=== PATIENT | female | born 1985 | race Caucasian/White ===

== ENCOUNTER → 2016-11-02 | Outpatient (CLI) | payer OTHER ==
[~2016-11-02] MED LIST: FRRS300 PO; NITR-5 PO; ONDA4TAB10 SL; PRENTAB26 PO
[2016-11-02 15:12] LABS: URINE APPEARANCE CLEAR (CLEAR); URINE BILIRUBIN NEG (NEG); URINE COLOR YELLOW; URINE EPITHELIAL CELL AUTO >30 /lpf (0-5); URINE NITRITE NEG (NEG); URINE PH 7.5 (4.5-7.5); URINE SPECIFIC GRAVITY 1.024 (1.000-1.030); UROBILINOGEN NEG (NEG)
[2016-11-02 15:14] LABS: MANUAL MICROSCOPIC REQUIRED? NO; REVIEW REQ? NO
[2016-11-06 23:54] LABS: CHLAMYDIA TRACH RNA*** NOT DETECTED (NOT DETECTED); GC (NEIS GONORRHOEAE)RNA** NOT DETECTED (NOT DETECTED)
== END | disposition home or self-care (01) ==
LOC: C.LABSPEC 13:27
PROVIDERS: ATTEND Physician Assistant
DX: N89.8 Other specified noninflammatory disorders of vagina (principal)

== ENCOUNTER → 2016-11-14 | Outpatient (CLI) | payer OTHER | END | disposition home or self-care (01) | LOC: C.LABSPEC 18:15 | PROVIDERS: ATTEND Physician Assistant | DX: N89.8 Other specified noninflammatory disorders of vagina (principal) ==

== ENCOUNTER 2017-01-03 15:34 | Emergency (ER) | payer OTHER ==
[~2017-01-03] VITALS: Ht 157.5 cm; Wt 66.8 kg
[~2017-01-03 15:34] MED LIST changes: -NITR-5 PO; -ONDA4TAB10 SL
[2017-01-03 15:37] VITALS: TEMP 36.8; Ht 157.5 cm; Wt 66.8 kg
[2017-01-03] MEDS ORDERED: ONDANSETRON INJ 2 MG/ML 2 ML VIAL IV STA (15:50)
[2017-01-03] MEDS ORDERED: SODIUM CHLORIDE 0.9% 1000ML 1,000 ML IV STA (15:50)
[2017-01-03 16:27] LABS: BASO % 0.8 %; BASO ABS # 0.03 K/uL (0-0.2); COMPLETE YES; EOS % 1.8 %; HEMATOCRIT 33.3 % (37-47); IG% 0.3 %; LYMPH % 30.6 %; LYMPH ABS # 1.18 K/uL (1.2-3.4); MEAN CELL VOLUME 90.7 fL (80-100); MEAN PLATELET VOLUME 9.6 fL (7.4-10.4); NEUT % 52.5 %; PLATELET COUNT 193 K/uL (130-400); RED BLOOD COUNT 3.67 M/uL (4.2-5.4); WHITE BLOOD COUNT 3.85 K/uL (4.8-10.8)
[2017-01-03 16:47] LABS: BUN/CREATININE RATIO 14.8 (10-20); CALCIUM 8.5 mg/dl (8.5-10.1); CREATININE 0.68 mg/dl (0.60-1.20); POTASSIUM 3.9 mmol/L (3.5-5.1)
[2017-01-03 16:50] LABS: URINE APPEARANCE CLEAR (CLEAR); URINE BILIRUBIN NEG (NEG); URINE COLOR YELLOW; URINE EPITHELIAL CELL AUTO >30 /lpf (0-5); URINE NITRITE NEG (NEG); URINE SPECIFIC GRAVITY 1.023 (1.000-1.030); UROBILINOGEN NEG (NEG)
[2017-01-03 16:55] LABS: MANUAL MICROSCOPIC REQUIRED? NO; REVIEW REQ? NO
--- NOTE | 2017-01-03 18:14 | DIAGNOSTIC IMAGING REPORT ---
FIRST TRIMESTER ULTRASOUND (transabdominal and endovaginal scanning) CLINICAL HISTORY: . Pain. COMPARISON STUDY: No previous studies for comparison. FINDINGS: The uterus measures 9.2 x 4.8 x 5.7 cm. A 5 mm cystic structure is visualized within the endometrium. This appears to demonstrate a double decidual sign. A small yolk sac is visualized. Embryonic pole was not yet evident. The right ovary measures 36 x 20 x 20 mm. The left ovary measures 29 x 18 x 20 mm. IMPRESSION: Early intrauterine gestation. Gestational sac measures 5 mm. A yolk sac was identified. No embryonic pole was yet visualized. Electronically signed by: Trever Magallanes M.D. 01/03/2017 6:12 PM Dictated Date/Time: 01/03/2017 6:10 PM
--- NOTE | 2017-01-03 18:17 | DIAGNOSTIC IMAGING REPORT ---
RENAL ULTRASONOGRAPHY CLINICAL HISTORY: Flank pain. . COMPARISON STUDY: Biliary ultrasound dated 01/12/2016, MRI dated 02/18/2014 FINDINGS: The right kidney measures 13.1 cm in length. The left kidney measures 12.3 cm in length. No renal masses are visualized. There is no hydronephrosis. The spleen is minimally enlarged measuring 13.9 cm. Multiple large hepatic masses are visualized. A prior MRI revealed large hepatic hemangiomas. No bladder masses were visualized. Neither ureteral jet was identified IMPRESSION: 1. Ultrasonographically normal kidneys. No evidence of hydronephrosis 2. Enlarging hepatic masses, the largest of which measures 9.4 cm. A 2014 MRI study revealed giant hemangiomas 3. Mild splenomegaly Electronically signed by: Trever Magallanes M.D. 01/03/2017 6:16 PM Dictated Date/Time: 01/03/2017 6:12 PM
[2017-01-03] MEDS ORDERED: CEFTRIAXONE SOD INJ 1 GM ADDVIAL IV STA (18:59)
[2017-01-03] MEDS ORDERED: NITROFURANTOIN MONOHYDRATE 100 MG CAP PO STA (19:00)
[2017-01-03] MEDS ORDERED: MACROBID 100MG HOME PACK 1 EA VIAL PO ONE (19:00)
[2017-01-03] MEDS ORDERED: ONDA4TAB10 SL (19:03)
[2017-01-03] MEDS ORDERED: NITR-5 PO (19:03)
--- NOTE | 2017-01-03 19:14 | EMERGENCY ROOM VISIT NOTE ---
History Report prepared by Sarita: Moose Dasilva Under the Supervision of: Dr. Karri Simon D.O. First contact with patient: 15:45 Chief Complaint: ABDOMINAL PAIN Stated Complaint: ABDOMINAL PAIN, BACK PAIN- LT SIDE WORSE History of Present Illness The patient is a 31 year old female who presents to the Emergency Room with complaints of waxing and waning left sided abdominal pain beginning five days ago. She is , but is not sure how far along she is. Her LNMP was about a month ago. This is her fourth , and she had three successful births. The patient describes her pain as "stabbing". She states that her pain radiates into her back. The patient denies any vomiting, urinary symptoms, chest pain, SOB, or diarrhea. She also complains of nausea. She was seen by her PCP yesterday who checked her urine which appeared normal. The patient has a history of abdominal pain from "stomach issues", but states that her current pain feels very different. She denies any recent alcohol use. She does not smoke. Her last normal bowel movement was today. The patient states that she has been experiencing some intermittent reflux-like symptoms recently. Source of History: patient Onset: Five days ago Position: abdomen (left side) Quality: stabbing Timing: waxes/wanes Associated Symptoms: + nausea, + back pain, No chest pain, No SOB, No vomiting, No diarrhea, No urinary symptoms Review of Systems See HPI for pertinent positives & negatives. A total of 10 systems reviewed and were otherwise negative. Past Medical & Surgical Medical Problems: (1) 40 weeks gestation of (2) Normal labor Family History No pertinent family history stated. Social History Smoking Status: Never Smoker Housing Status: lives with family Current/Historical Medications Scheduled Nitrofurantoin Monohyd Macrocr (Macrobid), 100 MG PO BID Ondasetron Odt (Zofran Odt), 4 MG SL Q6H Allergies Coded Allergies: Penicillin G (Verified Allergy, Intermediate, RASH, 01/03/17) Physical Exam Vital Signs Date Time Temp Pulse Resp B/P (MAP) Pulse Ox O2 Delivery O2 Flow Rate FiO2 01/03/17 19:26 70 16 119/76 99 01/03/17 19:08 79 18 119/76 99 Room Air 01/03/17 15:37 36.8 87 16 134/88 100 Room Air Physical Exam GENERAL: Patient is awake, alert, and in no acute distress. Patient is resting comfortably and showing no signs of anxiety EYES: The conjunctivae are clear. The pupils are round and reactive. EARS, NOSE, MOUTH AND THROAT: The nose is without any evidence of any deformity. Mucous membranes are moist tongue is midline NECK: The neck is nontender and supple. RESPIRATORY: Normal respiratory effort is noted there is no evidence of wheezing rhonchi or rales CARDIOVASCULAR: Regular rate and rhythm noted there no murmurs rubs or gallops normal S1 normal S2 GASTROINTESTINAL: The abdomen is soft with LUQ tend to palpation. No guarding or rigidity noted. BACK: Mild left CVA tenderness to percussion. No midline tenderness. ROM intact. MUSCULOSKELETAL/EXTREMITIES: There is no evidence of gross deformity full range of motion is noted in the hips and shoulders SKIN: There is no obvious evidence of any rash. There are no petechiae, pallor or cyanosis noted. NEUROLOGIC: Patient is awake alert and oriented x3 Medical Decision & Procedures ER Provider Diagnostic Interpretation: US results as stated below per my review and radiologist interpretation. RENAL ULTRASONOGRAPHY FINDINGS: The right kidney measures 13.1 cm in length. The left kidney measures 12.3 cm in length. No renal masses are visualized. There is no hydronephrosis. The spleen is minimally enlarged measuring 13.9 cm. Multiple large hepatic masses are visualized. A prior MRI revealed large hepatic hemangiomas. No bladder masses were visualized. Neither ureteral jet was identified IMPRESSION: 1. Ultrasonographically normal kidneys. No evidence of hydronephrosis 2. Enlarging hepatic masses, the largest of which measures 9.4 cm. A 2013 MRI study revealed giant hemangiomas 3. Mild splenomegaly Electronically signed by: Trever Magallanes M.D. FIRST TRIMESTER ULTRASOUND (transabdominal and endovaginal scanning) FINDINGS: The uterus measures 9.2 x 4.8 x 5.7 cm. A 5 mm cystic structure is visualized within the endometrium. This appears to demonstrate a double decidual sign. A small yolk sac is visualized. Embryonic pole was not yet evident. The right ovary measures 36 x 20 x 20 mm. The left ovary measures 29 x 18 x 20 mm. IMPRESSION: Early intrauterine gestation. Gestational sac measures 5 mm. A yolk sac was identified. No embryonic pole was yet visualized. Electronically signed by: Trever Magallanes M.D. Laboratory Results 01/03/17 16:00 Red Blood Count 3.67, Mean Corpuscular Volume 90.7, Mean Corpuscular Hemoglobin 30.0, Mean Corpuscular Hemoglobin Concent 33.0, Mean Platelet Volume 9.6, Neutrophils (%) (Auto) 52.5, Lymphocytes (%) (Auto) 30.6, Monocytes (%) (Auto) 14.0, Eosinophils (%) (Auto) 1.8, Basophils (%) (Auto) 0.8, Neutrophils # (Auto ) 2.02, Lymphocytes # (Auto) 1.18, Monocytes # (Auto) 0.54, Eosinophils # (Auto ) 0.07, Basophils # (Auto) 0.03 01/03/17 16:00 Test 01/03/17 16:00 White Blood Count 3.85 K/uL (4.8-10.8) Red Blood Count 3.67 M/uL (4.2-5.4) Hemoglobin 11.0 g/dL (12.0-16.0) Hematocrit 33.3 % (37-47) Mean Corpuscular Volume 90.7 fL (80-100) Mean Corpuscular Hemoglobin 30.0 pg (25-34) Mean Corpuscular Hemoglobin Concent 33.0 g/dl (32-36) Platelet Count 193 K/uL (130-400) Mean Platelet Volume 9.6 fL (7.4-10.4) Neutrophils (%) (Auto) 52.5 % Lymphocytes (%) (Auto) 30.6 % Monocytes (%) (Auto) 14.0 % Eosinophils (%) (Auto) 1.8 % Basophils (%) (Auto) 0.8 % Neutrophils # (Auto) 2.02 K/uL (1.4-6.5) Lymphocytes # (Auto) 1.18 K/uL (1.2-3.4) Monocytes # (Auto) 0.54 K/uL (0.11-0.59) Eosinophils # (Auto) 0.07 K/uL (0-0.5) Basophils # (Auto) 0.03 K/uL (0-0.2) RDW Standard Deviation 43.0 fL (36.4-46.3) RDW Coefficient of Variation 13.1 % (11.5-14.5) Immature Granulocyte % (Auto) 0.3 % Immature Granulocyte # (Auto) 0.01 K/uL (0.00-0.02) Urine Color YELLOW Urine Appearance CLEAR (CLEAR) Urine pH 6.0 (4.5-7.5) Urine Specific [place] 1.023 (1.000-1.030) Urine Protein NEG (NEG) Urine Glucose (UA) NEG (NEG) Urine Ketones NEG (NEG) Urine Occult Blood NEG (NEG) Urine Nitrite NEG (NEG) Urine Bilirubin NEG (NEG) Urine Urobilinogen NEG (NEG) Urine Leukocyte Esterase SMALL (NEG) Urine WBC (Auto) 10-30 /hpf (0-5) Urine RBC (Auto) 0-4 /hpf (0-4) Urine Hyaline Casts (Auto) 1-5 /lpf (0-5) Urine Epithelial Cells (Auto) >30 /lpf (0-5) Urine Bacteria (Auto) 1+ (NEG) Anion Gap 5.0 mmol/L (3-11) Est Creatinine Clear Calc Drug Dose 109.4 ml/min Estimated GFR () 137.0 Estimated GFR (Non- 118.2 BUN/Creatinine Ratio 14.8 (10-20) Calcium Level 8.5 mg/dl (8.5-10.1) Total Bilirubin 0.5 mg/dl (0.2-1) Direct Bilirubin 0.1 mg/dl (0-0.2) Aspartate Amino Transf (AST/SGOT) 12 U/L (15-37) Alanine Aminotransferase (ALT/SGPT) 21 U/L (12-78) Alkaline Phosphatase 69 U/L (45-117) Total Protein 6.8 gm/dl (6.4-8.2) Albumin 3.5 gm/dl (3.4-5.0) Lipase 147 U/L (73-393) Human Chorionic Gonadotropin, Quant 2859 mIU/mL Laboratory results per my review. Medications Administered Medications (Trade) Dose Ordered Sig/Alejandro Route Start Time Stop Time Status Last Admin Dose Admin Sodium Chloride 1,000 ml @ 999 mls/hr Q1H1M STAT IV 01/03/17 15:50 01/03/17 16:51 DC 01/03/17 15:50 999 MLS/HR Nitrofurantoin Macrocrystals (Macrobid Cap) 100 mg NOW STAT PO 01/03/17 19:00 01/03/17 19:02 DC 01/03/17 19:10 100 MG Nitrofurantoin (Macrobid Homepack 100MG) 1 homepack UD ONCE PO 01/03/17 19:00 01/03/17 19:02 DC 01/03/17 19:16 1 HOMEPACK ED Course 1546: The patient was evaluated in room A2. A complete history and physical examination were performed. 1550: Ordered Zofran Inj 4 mg IV, NSS 1,000 ml @ 999 mls/hr IV. 1859: Ordered Rocephin Inj 1 gm IV. 1900: Ordered Macrobid Homepack 100 mg PO, Macrobid Cap 100 mg PO. Upon reevaluation, the patient is resting comfortably. I discussed the results and treatment plan with Her. She verbalized agreement of the treatment plan. The patient was discharged home. Medical Decision Differential diagnosis: Etiologies such as appendicitis, diverticulitis, PUD, biliary pathology, UTI, pancreatitis, obstruction, mesenteric ischemia, aortic pathology, infections, inflammatory bowel disease, renal colic, as well as others were entertained. Nursing notes reviewed. The patient is a 31-year-old female who presented to the emergency department for an evaluation of left-sided flank pain. The patient is currently in her first trimester . She had no vaginal bleeding or discharge noted. The patient's abdominal pain appeared to be mostly on the left side. She did not have a physical exam consistent with an acute surgical abdomen. The patient's pelvic ultrasound did show signs of intrauterine and her beta hCG quantitative was correlating with this ultrasound. The patient was found have abnormalities in her liver which are consistent with her previous radiographic studies. I discussed the patient's laboratory and radiographic studies with her. She was found to have signs of urinary tract infection on urinalysis. She was treated with antibiotics in emergency department. She was encouraged to rest and avoid any strenuous activity. She was also encouraged to follow-up with her primary care physician as soon as possible for further evaluation and also follow-up with her primary [facility] physician. Otherwise she was encouraged to return to the emergency apartment immediately if symptoms change worsen or the need arises. Impression Primary Impression: LUQ abdominal pain Additional Impression: First trimester Scribe Attestation The scribe's documentation has been prepared under my direction and personally reviewed by me in its entirety. I confirm that the note above accurately reflects all work, treatment, procedures, and medical decision making performed by me. Departure Information Dispostion Home / Self-Care Prescriptions Nitrofurantoin Monohyd Macrocr (Macrobid) 100 Mg Cap 100 MG PO BID, #14 CAP Prov: Karri Simon, DO 01/03/17 Ondasetron Odt (ZOFRAN ODT) 4 Mg Tab 4 MG SL Q6H for Nausea, #15 TAB Prov: Karri Simon, DO 01/03/17 Referrals Akira Burgos MD (PCP) Forms HOME CARE DOCUMENTATION FORM, IMPORTANT VISIT INFORMATION Patient Instructions ED Abdominal Pain Unkn Cause, My [facility], Urinary Tract Infecs Women Additional Instructions Call your family as well as her [facility] physician to schedule follow-up appointment. Drink plenty clear liquids. Continue all medications as prescribed. Return to the emergency Department immediately if symptoms change worsen or the need arises. Problem Qualifiers
[2017-01-03 19:26] VITALS: BP 119/76; PULSE 70; O2SAT 99
== END 2017-01-03 19:27 | disposition home or self-care (01) ==
LOC: C.EDB 15:35 → C.EDA 19:27
DX: O99.89 Other specified diseases and conditions complicating pregnancy, childbirth and the puerperium (principal); Z3A.00 Weeks of gestation of pregnancy not specified; R10.12 Left upper quadrant pain

== ENCOUNTER → 2017-01-19 | Outpatient (CLI) | payer OTHER ==
[~2017-01-19] MED LIST changes: -FRRS300 PO; +NITR-5 PO; +ONDA4TAB10 SL; -PRENTAB26 PO
[2017-01-19 14:37] LABS: URINE APPEARANCE CLEAR (CLEAR); URINE BILIRUBIN NEG (NEG); URINE COLOR YELLOW; URINE NITRITE NEG (NEG); URINE PH >= 9.0 (4.5-7.5); URINE SPECIFIC GRAVITY 1.024 (1.000-1.030); UROBILINOGEN NEG (NEG)
[2017-01-19 14:48] LABS: MANUAL MICROSCOPIC REQUIRED? NO; REVIEW REQ? NO
== END | disposition home or self-care (01) ==
LOC: C.LABSPEC 13:47
PROVIDERS: ATTEND Obstetrics & Gynecology
DX: Z34.90 Encounter for supervision of normal pregnancy, unspecified, unspecified trimester (principal)

== ENCOUNTER → 2017-01-23 | Outpatient (CLI) | payer OTHER ==
[2017-01-23 12:20] LABS: BASO % 0.4 %; BASO ABS # 0.02 K/uL (0-0.2); COMPLETE YES; HEMATOCRIT 36.2 % (37-47); IG% 0.4 %; LYMPH % 24.9 %; LYMPH ABS # 1.23 K/uL (1.2-3.4); MEAN CELL VOLUME 88.7 fL (80-100); MEAN CORPUSCULAR HEMOGLOBIN 28.4 pg (25-34); MEAN PLATELET VOLUME 9.5 fL (7.4-10.4); MONO % 9.5 %; NEUT % 63.8 %; PLATELET COUNT 236 K/uL (130-400); RED BLOOD COUNT 4.08 M/uL (4.2-5.4); WHITE BLOOD COUNT 4.93 K/uL (4.8-10.8)
[2017-01-25 08:35] LABS: CHLAMYDIA TRACH RNA*** NOT DETECTED (NOT DETECTED); GC (NEIS GONORRHOEAE)RNA** NOT DETECTED (NOT DETECTED)
== END | disposition home or self-care (01) ==
LOC: C.LAB1850 10:27
PROVIDERS: ATTEND Obstetrics & Gynecology
DX: Z34.90 Encounter for supervision of normal pregnancy, unspecified, unspecified trimester (principal)

== ENCOUNTER → 2017-01-23 | Outpatient (CLI) | payer OTHER | END | disposition home or self-care (01) | LOC: C.PAPS 13:40 | PROVIDERS: ATTEND Obstetrics & Gynecology | DX: Z34.90 Encounter for supervision of normal pregnancy, unspecified, unspecified trimester (principal) ==

== ENCOUNTER → 2017-03-21 | Outpatient (CLI) | payer OTHER ==
[2017-03-21 12:31] LABS: GTGD 50 Grams
[2017-03-22 15:21] LABS: AFP CONCENTRATION 35.8 NG/ML; AFP MULTIPLE OF MEDIAN 1.17; AFPTS GESTATIONAL AGE 15.6 WEEKS; AFPTS INSULIN DEP DIABETIC? NO; AFPTS MATERNAL WT 151 LBS; ALPHA-FETOPROTEIN RACE CAUCASIAN=W; ESTRIOL MULTIPLE OF MEDIAN 0.83; HISTORY OF NTD NO; INHIBIN A 167 PG/ML; INHIBIN A MOM 0.95; REPEAT SAMPLE? NO; hCG MULTIPLE OF MEDIAN 1.97
== END | disposition home or self-care (01) ==
LOC: C.LAB1850 11:33
PROVIDERS: ATTEND Obstetrics & Gynecology
DX: Z34.82 Encounter for supervision of other normal pregnancy, second trimester (principal)

== ENCOUNTER → 2017-05-03 | Outpatient (CLI) | payer OTHER ==
--- NOTE | 2017-05-03 14:35 | MAMMOGRAPHY REPORT ---
ULTRASOUND OF LEFT BREAST: 05/03/2017 CLINICAL HISTORY: The patient reports intermittent pain in her left breast for approximately 2 months . She is currently 21 weeks . She has a history of a fine-needle aspiration of a palpable l eft 1:00 breast lump which yielded benign lactational changes. COMPARISON: Comparison is made to exams dated: 07/06/2015 ultrasound and 01/12/2016 ultrasound - [facility]. TECHNIQUE: Real-time targeted ultrasound of the left breast was performed. FINDINGS: Real-time, high-resolution targeted ultrasound was performed of the area of intermittent p ain pointed out by the patient in the left upper outer quadrant. She also reports intermittent pain in the left upper inner quadrant along the edge of the breast. Heterogeneous breast parenchyma is not ed in these regions, consistent with lactational changes. No suspicious mass or other suspicious son ographic abnormality is evident. IMPRESSION: ACR BI-RADS CATEGORY 2: BENIGN No suspicious sonographic abnormalities at the site of left breast pain pointed out by the patient. There is no sonographic evidence of malignancy. Recommend clinical follow-up. The patient was verbally notified of the results. Fiona Dugan M.D. /:05/03/2017 09:29:17 Lbd Teacher: Rhoda DEXTER([place])([place]), [facility] letter sent: Normal 1/2 BI-RADS Code: ACR BI-RADS Category 2: Benign
== END | disposition home or self-care (01) ==
LOC: C.MAMM 09:06
PROVIDERS: ATTEND Nurse Practitioner Family
DX: O92.29 Other disorders of breast associated with pregnancy and the puerperium (principal); Z3A.21 21 weeks gestation of pregnancy

== ENCOUNTER → 2017-06-11 | Outpatient (CLI) | payer OTHER ==
[2017-06-11 13:38] LABS: HEMATOCRIT 27.9 % (37-47)
[2017-06-11 14:08] LABS: GTGD 50 Grams
[2017-06-11 14:36] LABS: URINE APPEARANCE CLEAR (CLEAR); URINE BILIRUBIN NEG (NEG); URINE COLOR YELLOW; URINE EPITHELIAL CELL AUTO >30 /lpf (0-5); URINE NITRITE NEG (NEG); URINE PH 6.5 (4.5-7.5); URINE SPECIFIC GRAVITY 1.024 (1.000-1.030); UROBILINOGEN NEG (NEG)
[2017-06-11 14:37] LABS: MANUAL MICROSCOPIC REQUIRED? NO; REVIEW REQ? NO
== END | disposition home or self-care (01) ==
LOC: C.LAB1850 12:26
PROVIDERS: ATTEND Obstetrics & Gynecology
DX: Z34.83 Encounter for supervision of other normal pregnancy, third trimester (principal)

== ENCOUNTER 2017-07-04 18:52 | Emergency (ER) | payer OTHER ==
[~2017-07-04] VITALS: Ht 157.5 cm; Wt 79.8 kg
[2017-07-04 19:02] VITALS: TEMP 36.7; Ht 157.5 cm; Wt 79.8 kg
--- NOTE | 2017-07-04 20:08 | DIAGNOSTIC IMAGING REPORT ---
R FOOT MIN 3 VIEWS ROUTINE CLINICAL HISTORY: 32 years-old Female presenting with right foot pain, pt . TECHNIQUE: Frontal, oblique, and lateral views of the right foot were obtained. COMPARISON: None. FINDINGS: No acute fracture or malalignment. No significant degenerative change. No radiographic soft tissue abnormality. IMPRESSION: No acute osseous injury of the right foot. Electronically signed by: Robert Vu M.D. 07/04/2017 8:06 PM Dictated Date/Time: 07/04/2017 8:04 PM
--- NOTE | 2017-07-04 20:17 | EMERGENCY ROOM VISIT NOTE ---
History First contact with patient: 19:08 Chief Complaint: FALL Stated Complaint: FELL-30 WKS W/CONTRACTIONS, RT LEG/ANKLE PAIN-WC History of Present Illness The patient is a 32 year old female who presents to the Emergency Room with complaints of an injury to her right foot. The patient states she is currently 30 weeks and 4 days . The patient states that she tripped and fell earlier in the day, injuring her right foot. She denies head injury or any other injury. She rates her discomfort a 4/10. She does state that during her drive here, she began to feel what she believes are contractions. She states these happen about 2 minutes apart. She has had previous deliveries but states she is unsure if this felt like those or if these are [facility] contractions. She denies any numbness or weakness. She denies any pain in the ankle or the rest of the leg. Review of Systems A complete 10 point review of systems was reviewed with the patient with pertinent positives and negatives as per history of present illness. All else were negative. Past Medical/Surgical History Medical Problems: (1) 40 weeks gestation of (2) Normal labor Social History Smoking Status: Never Smoker Housing Status: lives with family Current/Historical Medications Scheduled Multivitamins/Minerals (Mvi With Minerals), 1 TAB PO DAILY Physical Exam Vital Signs Date Time Temp Pulse Resp B/P (MAP) Pulse Ox O2 Delivery O2 Flow Rate FiO2 07/04/17 20:38 93 16 115/70 100 07/04/17 19:02 36.7 104 18 127/72 100 Room Air Physical Exam VITALS: Vitals are noted on the nurse's note and reviewed by myself. Vital signs stable. GENERAL: This is a 32-year-old female, in no acute distress, nondiaphoretic, well-developed well-nourished. HEART: Regular rate and rhythm without murmurs gallops or rubs. LUNGS: Clear to auscultation bilaterally without wheezes, rales or rhonchi. ABDOMEN: Gravid appearance. No abdominal tenderness to palpation. MUSCULOSKELETAL: There is mild tenderness to palpation the medial aspect of the right foot. No tenderness of the ankle or tibia/fibula. Dorsalis pedis pulse 2 +. NEURO: Patient was alert and oriented to person place and time. Medical Decision & Procedures ER Provider Diagnostic Interpretation: R FOOT MIN 3 VIEWS ROUTINE FINDINGS: No acute fracture or malalignment. No significant degenerative change. No radiographic soft tissue abnormality. IMPRESSION: No acute osseous injury of the right foot. Medical Decision The patient was evaluated as above. X-ray of the right foot was obtained and read by radiology with no acute fractures. Patient was offered a postoperative shoe but declined. Conservative measures were discussed with the patient. She will follow-up with her primary care provider or orthopedics as needed. RESEARCH TECHNOLOGIST was consulted and the patient was sent to labor and delivery for monitoring due to complaint of possible contractions. Medication Reconcilliation Current Medication List: was personally reviewed by co Blood Pressure Screening Patient's blood pressure: Normal blood pressure Impression Primary Impression: Right foot pain Departure Information Dispostion Home / Self-Care Condition GOOD Referrals Akira Burgos MD (PCP) Patient Instructions [facility] Additional Instructions Tylenol as needed for pain. Ice the foot and elevate it for pain. Follow-up with your primary care provider/orthopedics for persistent or worsening foot pain.
[2017-07-04] MEDS ORDERED: ZFRODT4HP PO (20:29)
[2017-07-04] MEDS ORDERED: ACET-1256 PO (20:29)
[2017-07-04] MEDS ORDERED: MULT-513 PO (20:29)
[2017-07-04 20:38] VITALS: BP 115/70; PULSE 93; O2SAT 100
== END 2017-07-04 20:40 | disposition home or self-care (01) ==
LOC: C.EDB 18:54 → C.EDA 20:40
DX: M79.671 Pain in right foot (principal); Z33.1 Pregnant state, incidental

== ENCOUNTER 2017-07-04 20:46 | Outpatient (CLI) | payer OTHER ==
[~2017-07-04] VITALS: Ht 157.5 cm; Wt 79.8 kg
[~2017-07-04 20:46] MED LIST changes: +ACET-1256 PO; +MULT-513 PO; +ZFRODT4HP PO
[2017-07-04 21:17] VITALS: Ht 157.5 cm; Wt 79.8 kg
== END 2017-07-04 21:40 | disposition home or self-care (01) ==
LOC: C.OPB 20:46 → C.LD 20:46 → C.OPB 21:40
PROVIDERS: ATTEND Obstetrics & Gynecology
DX: O99.89 Other specified diseases and conditions complicating pregnancy, childbirth and the puerperium (principal); S99.929A Unspecified injury of unspecified foot, initial encounter; O62.9 Abnormality of forces of labor, unspecified; W19.XXXA Unspecified fall, initial encounter; Z3A.00 Weeks of gestation of pregnancy not specified

== ENCOUNTER → 2017-08-16 | Outpatient (CLI) | payer OTHER ==
[~2017-08-16] MED LIST changes: -ACET-1256 PO; -NITR-5 PO; -ONDA4TAB10 SL; -ZFRODT4HP PO
== END | disposition home or self-care (01) ==
LOC: C.LABSPEC 17:56
PROVIDERS: ATTEND Obstetrics & Gynecology
DX: Z34.83 Encounter for supervision of other normal pregnancy, third trimester (principal); Z3A.00 Weeks of gestation of pregnancy not specified

== ENCOUNTER 2017-09-03 02:49 | Inpatient (IN) | payer OTHER ==
[~2017-09-03] VITALS: Ht 160 cm; Wt 66.7 kg
[2017-09-03] MEDS ORDERED: LACTATED RINGER'S 1000ML 1,000 ML IV PRN (04:49)
[2017-09-03 04:51] VITALS: Ht 160 cm; Wt 66.7 kg
[2017-09-03] MEDS ORDERED: LACTATED RINGER'S 1000ML 1,000 ML IV SCH (05:00)
[2017-09-03 05:31] LABS: HEMOGLOBIN 8.2 g/dL (12.0-16.0); MEAN CORPUSCULAR HEMOGLOBIN 25.9 pg (25-34); MEAN CORPUSCULAR HGB CONC 31.5 g/dl (32-36); MEAN PLATELET VOLUME 8.8 fL (7.4-10.4); NUCLEATED RED BLOOD CELL ABS 0.06 K/uL (0-0); PLATELET COUNT 159 K/uL (130-400); RED CELL DISTRIBUTION WIDTH CV 16.2 % (11.5-14.5); RED CELL DISTRIBUTION WIDTH SD 47.5 fL (36.4-46.3); WHITE BLOOD COUNT 16.39 K/uL (4.8-10.8)
[2017-09-03] MEDS ORDERED: BUPIVACAINE 0.25% 30 ML VIAL ONE (06:31)
[2017-09-03] MEDS ORDERED: FENTANYL 2MCG/ML ROPIV 1.25MG/ML 100ML BAG EPI ONE (06:31)
[2017-09-03] MEDS ORDERED: EpHEDrine SULFATE INJ 50 MG/ML AMP ONE (06:31)
[2017-09-03] MEDS ORDERED: FENTANYL CITRATE INJ 50 MCG/1 ML 2 ML VIAL ONE (06:31)
[2017-09-03] MEDS ORDERED: LACTATED RINGER'S 1000ML 500 ML IV PRN (07:05)
[2017-09-03] MEDS ORDERED: NALOXONE HCL INJ 1 MG in SODIUM CHLORIDE 0.9% 1000ML 1,000 ML IV PRN (07:05)
[2017-09-03] MEDS ORDERED: EpHEDrine SULFATE INJ 50 MG/ML AMP IV PRN (07:15)
[2017-09-03] MEDS ORDERED: DiphenhydrAMINE HCL 50 MG/ML VIAL IV PRN (07:15)
[2017-09-03] MEDS ORDERED: NALOXONE HCL INJ 0.4 MG/1 ML VIAL/CARP IV PRN (07:15)
[2017-09-03] MEDS ORDERED: FENTANYL 2MCG/ML ROPIV 1.25MG/ML 100ML BAG EPI PRN (07:15)
[2017-09-03] MEDS ORDERED: NALBUPHINE HCL INJ 10 MG/ML AMP IV PRN (07:15)
[2017-09-03] MEDS ORDERED: ONDANSETRON INJ 2 MG/ML 2 ML VIAL IV PRN (07:15)
[2017-09-03] MEDS ORDERED: OXYTOCIN 30 UNITS/500ML NSS IV ONE (08:38)
[2017-09-03] MEDS ORDERED: METHYLERGONOVINE MALEATE 0.2 MG/ML AMP ONE (08:41)
--- NOTE | 2017-09-03 09:09 | Anesthesia Procedure Note ---
Anesthesia Epidural Removal Nt Date & Time Sep 03, 2017 at 09:08 Vital Signs Pain Intensity: 0.0 Notes Mental Status: alert / awake / arousable, participated in evaluation Nausea / Vomiting: adequately controlled Pain: adequately controlled Airway Patency, RR, SpO2: stable & adequate BP & HR: stable & adequate Hydration State: stable & adequate Neuraxial Anesthesia: was administered Anesthetic Complications: no major complications apparent, pt satisfied with anesthetic care Epidural: removed without complications, with tip intact
[2017-09-03] MEDS ORDERED: LANOLIN OINT EXT PRN (09:15)
[2017-09-03] MEDS ORDERED: DIPHTHERIA/TETANUS/PERTUSSIS 0.5 ML SYR/VIAL IM. ONE (09:15)
[2017-09-03] MEDS ORDERED: OXYCODONE/ACETAMINOPHEN 5-325 TAB PO PRN (09:15)
[2017-09-03] MEDS ORDERED: OXYTOCIN 30 UNITS/500ML NSS IV PRN (09:15)
[2017-09-03] MEDS ORDERED: SUPERCREAM 0.870 % 15GM JAR EXT PRN (09:15)
[2017-09-03] MEDS ORDERED: BENZOCAINE 20% AER SPR 82.5 GM CAN EXT PRN (09:15)
[2017-09-03] MEDS ORDERED: HYDROCORTISONE ACETATE 25 MG SUPP PR PRN (09:15)
[2017-09-03] MEDS: IBUPROFEN 600 MG TAB PO PRN ×3 (10:26→20:18)
[2017-09-03] MEDS: ACETAMINOPHEN 325 MG TAB PO PRN ×3 (11:06→23:49)
[2017-09-03 12:45] VITALS: BP 126/85; PULSE 93; TEMP 36.9; O2SAT 98
--- NOTE | 2017-09-03 13:35 | Discharge Instructions ---
Discharge Instructions Date of Service Sep 03, 2017. Admission Reason for Admission: LABOR Discharge Discharge Diagnosis / Problem: Vaginal Delivery Discharge Goals Goal(s): Routine recovery after delivery Medications Continue Dispensed Medications: supercream, dermaplast, tucks, lansinoh Activity Recommendations Activity Limitations: per Instructions/Follow-up section . Instructions / Follow-Up Instructions / Follow-Up ACTIVITY RECOMMENDATIONS: * Gradual return to full activity over the next 2-3 weeks. * No lifting - nothing heavier than baby over the next 2-3 weeks. * Do not engage in vigorous exercise, sexual activity or sports until cleared by your physician. * Do not drive or operate any motorized equipment until cleared by your physician. * You may shower/bathe daily. MEDICATIONS: For discomfort or pain, you may use Acetaminophen (Tylenol), Ibuprofen (Advil), or Naproxen (Aleve) following the package directions. For constipation you may use Colace following the package directions. BREAST CARE: If you are not breast feeding: * Wear a supportive bra 24 hours a day for one to two weeks. * Avoid stimulating your breasts and nipples as much as possible during the first few weeks after delivery. * When taking a shower, have the warm water hit your back, not breasts. * When your breasts feel full, apply ice packs. Usually three to four times a day helps ease the discomfort. * Take a mild pain medication (Tylenol / Motrin) when you are uncomfortable. If breast feeding: * Use breast milk to lubricate nipples. Lansinoh cream may be used for sore nipples. You do not need to remove cream prior to breast feeding. If using a different brand of cream, check the label for directions regarding removal of cream prior to nursing. * Wear a supportive bra. * If having problems with breasts or breast feeding, call a personal consultant or your health care provider. EPISIOTOMY CARE: After delivery, if you have an episiotomy (stitches), the following steps will ease discomfort and aid healing. * For the first 24 hours after delivery, place ice packs next to your episiotomy to help reduce swelling. * After the first 24 hour-period, sitz baths, either portable or in the tub, are suggested. A shower with a shower arm sprayed over the episiotomy may be comforting. * Celestina care should be done after each voiding and bowel movement. Squirt warm water from a plastic bottle over the perineum (region of the body between the anus and urinary opening) and pat dry. * Use Dermoplast to ease discomfort. Shake container. [place] directly over the episiotomy. Place a Tucks on a clean sanitary pad next to your episiotomy. SPECIAL CARE INSTRUCTIONS: When you are discharged from the hospital, it is important for you to follow the instructions listed below: * During the first week at home, you should be able to care for yourself and your baby. In addition, the usual light household activities are encouraged. * Limit your activities to the way you feel. Do not try to clean the house or move furniture. Be sensible. * If you actively engage in sports and have done so up until the time of your delivery, you may resume these activities as soon as you feel able. This may take up to one month or even longer. Use good judgment. * Continue to take your vitamins for at least six weeks after the of your baby. * Your diet need not be limited unless you were on a special diet before your delivery. Breast-feeding mothers need around 2500 calories per day and at least 64-80 ounces of fluid per day (8 to 10 glasses). * You should eat foods from the four major food groups. Crash diets or fad diets are to be avoided. Eating lean meats, fresh fruits and vegetables, low-fat dairy products, high fiber foods and a regular exercise program, will help you get back to your pre- weight without putting your health at risk. * Constipation is sometimes a problem after delivery. Take a mild laxative as needed. If breast feeding, Milk of Magnesia is acceptable to use. You may use a suppository or Fleets enema if no episiotomy. * A daily shower or tub bath is suggested. Be sure to thoroughly and gently dry the perineum. * A bloody vaginal discharge will usually continue until around four weeks post . A small amount of bleeding may continue for as long as six weeks. Vaginal discharge changes from the bright red bleeding after delivery to pink then brownish and finally yellowish-pink before becoming white and disappearing. * Bleeding may increase with activity. Your first period may come in 4-8 weeks. If you are breast feeding, your period may be delayed even longer. * [place] (sex) can begin whenever both you and your partner feel comfortable and do not have any form of genital infection. It is recommended that you wait at least six weeks for internal and external healing to occur. If you have questions, please talk to your health care practitioner. A condom should be used to prevent infection and . * Foreplay, gentle intercourse and lubrication is very important the first several times to prevent pain. A water-based lubricant such as K-Y jelly or Astroglide may be used. * If you have RH negative blood and your baby is RH positive, you will receive RHOGAM by injection prior to discharge. The nurse will give you a card to keep with you that has the date and place that you received RHOGAM after delivery. * During your care, you had a Rubella screen done to check for the presence of rubella antibodies in your blood. If your test was negative, you will receive a Rubella vaccine prior to discharge. This vaccine may cause a fever, soreness at the injection site and flu-like symptoms. If these symptoms persist, notify your health care practitioner. is not advised for one month after a Rubella vaccine. * Verbalizes understanding of car seat law as reviewed with patient nursing. * Car Seat hand-out given and reviewed with patient by nursing. * Shaken baby information reviewed with patient by nursing. Call you doctor if: * Heavy bleeding (saturating several pads an hour) or passing clots the size of your fist. * A fever >101 degrees F (38.3 degrees C) on two occasions four hours apart and /or chills. * Unusual pain in the pelvic or vaginal areas. * "Baby Blues" lasting longer than two weeks. If you have any questions or concerns, call your health care practitioner at . FOLLOW UP VISIT: * Please call the office at to schedule a 6 week examination. It is important you keep this appointment. It is important for you to make arrangements for either yearly or twice yearly check-ups thereafter. Current Hospital Diet Patient's current hospital diet: Regular OB Diet Discharge Diet Recommended Diet: Regular Diet Pending Studies Studies pending at discharge: no Medical Emergencies . Who to Call and When: Medical Emergencies: If at any time you feel your situation is an emergency, please call 911 immediately. . Non-Emergent Contact Non-Emergency issues call your: Primary Care Provider . . "Provider Documentation" section prepared by Shirin Brandon. . VTE Core Measure Inpt VTE Proph given/why not?: Treatment not indicated
[2017-09-03 15:00] VITALS: BP 114/70; PULSE 89; TEMP 36.6; O2SAT 98
[2017-09-03] MEDS: DOCUSATE SODIUM 100 MG CAP PO SCH (20:11)
[2017-09-03 20:20] VITALS: BP 116/76; PULSE 96; TEMP 36.6
[2017-09-03 23:50] VITALS: BP 123/75; PULSE 96; TEMP 36.5
[2017-09-04 03:50] VITALS: BP 114/75; PULSE 77; TEMP 36.4
[2017-09-04] MEDS: IBUPROFEN 600 MG TAB PO PRN ×3 (04:02→12:18)
[2017-09-04 06:15] LABS: HEMATOCRIT 24.2 % (37-47); HEMOGLOBIN 7.4 g/dL (12.0-16.0)
--- NOTE | 2017-09-04 06:25 | Progress Note ---
Subjective Sep 04, 2017. Subjective conversation w/ patient (Patient seen and examined at bedside) Ambulation: ambulating normally Voiding: no voiding problems Diet Tolerance: Regular Diet Lochia: Moderate Feeding Type: Breast Feeding Pain: 7/10, improved with analgesia Review of Systems Constitutional: No fever, No chills Respiratory: No shortness of breath Cardiac: No chest pain Breast: No breast pain Abdomen: No nausea, No vomiting Female : No dysuria Objective Vital Signs Date Time Temp Pulse Resp B/P (MAP) Pulse Ox O2 Delivery O2 Flow Rate FiO2 09/04/17 03:50 36.4 77 18 114/75 (88) Room Air 09/03/17 23:50 Room Air 09/03/17 23:50 36.5 96 18 123/75 (91) Room Air 09/03/17 20:20 36.6 96 18 116/76 (89) Room Air 09/03/17 15:00 36.6 89 20 114/70 (85) 98 Room Air 09/03/17 15:00 98 Room Air 09/03/17 12:45 98 Room Air 09/03/17 12:45 36.9 93 20 126/85 (99) 98 Room Air Physical Exam General Appearance: WELL-APPEARING, WD/WN, NO APPARENT DISTRESS Respiratory/Chest: lungs clear, normal breath sounds Cardiovascular: regular rate, rhythm Abdomen: soft Fundus: Firm, Non-Tender, Relation to Umbilicus (at u) Extremities: no calf tenderness Laboratory Results Last 24 Hours Test 09/04/17 06:04 Hemoglobin 7.4 g/dL Hematocrit 24.2 % Medications Current Inpatient Medications Medications (Trade) Dose Ordered Sig/Alejandro Route Start Time Stop Time Status Last Admin Dose Admin Oxytocin (Pitocin IV) 30 units UD PRN IV 09/03/17 09:15 10/03/17 09:14 Benzocaine (Dermoplast Aero Spr) 1 appln PRN PRN EXT 09/03/17 09:15 10/03/17 09:14 09/03/17 23:49 82.5 APPLN Cocaine HCl (Supercream 0.870% Cr) BID PRN EXT 09/03/17 09:15 09/17/17 09:14 Hydrocortisone Acetate (Anusol Hc Supp) 25 mg BID PRN MO 09/03/17 09:15 10/03/17 09:14 Lanolin (Lanolin Oint) PRN PRN EXT 09/03/17 09:15 10/03/17 09:14 Prenat Multivit/ [place]/Iron/Folic Ac ( Vitamin Tab) 1 tab DAILY PO 09/04/17 08:00 10/04/17 07:59 Ibuprofen (Motrin Tab) 600 mg Q4H PRN PO 09/03/17 09:15 10/03/17 09:14 09/04/17 04:02 600 MG Acetaminophen (Tylenol Tab) 650 mg Q6H PRN PO 09/03/17 09:15 10/03/17 09:14 09/03/17 23:49 650 MG Oxycodone/ Acetaminophen (Percocet 5-325mg Tab) 1 tab Q4H PRN PO 09/03/17 09:15 09/17/17 09:14 Docusate Sodium (coLACE CAP) 100 mg BID PO 09/03/17 20:00 10/03/17 19:59 09/03/17 20:11 100 MG Ferrous Sulfate (Feosol Tab) 325 mg DAILY PO 09/04/17 08:00 10/04/17 07:59 Assessment and Plan Problem List Medical Problems: (1) First trimester Status: Acute (2) LUQ abdominal pain Status: Acute Post- Day#: 1 Continue Routine Care: 32F s/p NVD day 1 - A+, Rubella Immune, GBS -ve - pt doing well clinically - Vital Signs reviewed and WNL - Hemoglobin Reviewed. 8.2 -> 7.4 - Encourage ambulation, monitor and control pain with Motrin PRN - Encourage Breast Feeding - Pt ready for d/c today and counselled on discharge instructions Resident Physician Supervision Note: I interviewed and examined the patient. Discussed with Dr. Brandon and agree with findings and plan as documented in the note. Any exceptions or clarifications are listed here: Doing well. Patient lives with low hgb and is asymptomtaic from her hgb. She would like to go home today. Instructions given. Documented By: Allison Dixon Resident Tracking Resident Involvement: Resident Care Provided Care Provided: OB Delivery
[2017-09-04 07:30] VITALS: BP 127/91; PULSE 84; TEMP 36.8; O2SAT 100
[2017-09-04 07:56] VITALS: BP 127/91; PULSE 84; TEMP 36.8; O2SAT 100
[2017-09-04] MEDS ORDERED: PRENATAL VITAMIN TAB PO SCH (08:00)
[2017-09-04] MEDS ORDERED: FERROUS SULFATE 325 MG TAB PO SCH (08:00)
[2017-09-04] MEDS: DOCUSATE SODIUM 100 MG CAP PO SCH (08:43)
[2017-09-04 09:59] VITALS: O2SAT 100
[2017-09-04 10:05] VITALS: O2SAT 100
== END 2017-09-04 16:45 | disposition home or self-care (01) | DRG 775 ==
LOC: C.LD 02:49 → C.OPB 02:49 → C.LD 04:50 → C.OBG 12:32
PROVIDERS: ADMIT Obstetrics & Gynecology; ATTEND Obstetrics & Gynecology
PROC: 0KQM0ZZ Repair Perineum Muscle, Open Approach (ICD-10-PCS; principal; 2017-09-03)
PROC: 10E0XZZ Delivery of Products of Conception, External Approach (ICD-10-PCS; principal; 2017-09-03)
DX: O70.1 Second degree perineal laceration during delivery (principal); Z37.0 Single live birth; Z3A.39 39 weeks gestation of pregnancy; Z88.0 Allergy status to penicillin

== ENCOUNTER → 2017-09-12 | Outpatient (CLI) | payer OTHER ==
[2017-09-12 17:23] LABS: BASO % 0.1 %; BASO ABS # 0.01 K/uL (0-0.2); EOS % 1.9 %; EOS ABS # 0.17 K/uL (0-0.5); HEMOGLOBIN 9.5 g/dL (12.0-16.0); IG# 0.12 K/uL (0.00-0.02); LYMPH % 24.6 %; LYMPH ABS # 2.15 K/uL (1.2-3.4); MEAN CELL VOLUME 83.8 fL (80-100); MEAN CORPUSCULAR HEMOGLOBIN 25.7 pg (25-34); MEAN CORPUSCULAR HGB CONC 30.6 g/dl (32-36); MONO ABS # 0.61 K/uL (0.11-0.59); NEUT ABS # 5.69 K/uL (1.4-6.5); PLATELET COUNT 344 K/uL (130-400); RED CELL DISTRIBUTION WIDTH CV 16.5 % (11.5-14.5); RED CELL DISTRIBUTION WIDTH SD 49.8 fL (36.4-46.3); WHITE BLOOD COUNT 8.75 K/uL (4.8-10.8)
[2017-09-12 17:46] LABS: ALT/SGPT 18 U/L (12-78); AST/SGOT 14 U/L (15-37)
== END | disposition home or self-care (01) ==
LOC: C.LAB1850 16:50
PROVIDERS: ATTEND Obstetrics & Gynecology
DX: O90.89 Other complications of the puerperium, not elsewhere classified (principal); G44.209 Tension-type headache, unspecified, not intractable

== ENCOUNTER → 2017-10-25 | Outpatient (CLI) | payer OTHER ==
--- NOTE | 2017-10-26 07:46 | MAMMOGRAPHY REPORT ---
ULTRASOUND OF LEFT BREAST: 10/25/2017 CLINICAL HISTORY: The patient has been breast-feeding since August. She has a history of a palpabl e left 1:00 breast mass when she was breast-feeding in 2014, for which she underwent fine-needle aspi ration which yielded benign cytology including abundant breast tissue with lactational change. She r eports that the lump went away when she stopped breast-feeding, however, it has now returned since sh e has been breast-feeding again. She also reports intermittent left lateral breast pain. COMPARISON: Comparison is made to exams dated: 05/03/2017 ultrasound, 01/12/2016 ultrasound, and 06/16 ultrasound - [facility]. TECHNIQUE: Real-time targeted ultrasound of the left breast was performed. FINDINGS: Real-time, high-resolution targeted ultrasound was performed of the area of the palpable kena mp pointed out by the patient, in the left breast at 1:00 approximately 9-10 cm from the nipple. At the site of the palpable lump there is an isoechoic ill-defined mass which measures 2.7 x 1.1 x 3.3 c m. The mass is isoechoic to the surrounding fat lobules and does not appear significantly changed co mpared to the June 2015 exam when accounting for differences in measurement technique. The patie nt underwent a fine-needle aspiration of this area in 2014 which yielded benign pathology including l actational changes. Given the isoechoic appearance on ultrasound and given the prior benign cytology , the mass is benign and felt to represent prominent lactational changes. Targeted ultrasound was al so performed of the left far lateral breast in the region of intermittent pain pointed out by the pat ient, which shows expected lactational changes without evidence of a suspicious mass or other suspici ous sonographic abnormality. IMPRESSION: ACR BI-RADS CATEGORY 2: BENIGN Isoechoic 3.3 x 2.7 cm mass at the site of the palpable left 1:00 breast lump pointed out by the tatyana ent. The mass was previously biopsied in 2014 and yielded benign cytology including lactational guzman ges. Additionally, the mass has the appearance of lactational changes on ultrasound. Given the teresita gn pathology and given the benign appearance on ultrasound, the mass is considered benign and felt to represent lactational changes. There is no sonographic evidence of malignancy. Recommend clinical f ollow-up to resolution; any decision to repeat the biopsy should be based on clinical assessment. The patient was verbally notified of the results. Fiona Dugan M.D. ah/:10/25/2017 12:01:04 Glassware Maker Demonstrator: Fiona Dugan MD, [facility] letter sent: Normal 1/2 BI-RADS Code: ACR BI-RADS Category 2: Benign
== END | disposition home or self-care (01) ==
LOC: C.MAMM 11:28
PROVIDERS: ATTEND Obstetrics & Gynecology
DX: N64.4 Mastodynia (principal)

== ENCOUNTER 2023-08-22 14:43 | Observation (INO) ==
--- NOTE | 2023-08-22 14:48 | ED Triage Note ---
Date of Service August 22, 2023 Provider in Triage Author: Elmer Montes History of Present Illness This patient was briefly evaluated while in triage. An abbreviated physical exam was performed. This patient is a 38-year-old Female who presents to the ED for evaluation of pain in her mouth/throat. Symptoms started late sunday PM. On abx (augmentin) since Sunday PM. At PCP today and told she has an abscess in her mouth/throat. Sent here for further eval. Physical Exam GENERAL: 38 year old female. In no acute distress. SKIN: No lesions or rashes. THROAT: Mild trismus. R sided soft palate edema and erythema. HEART: Regular rate and rhythm. LUNGS: Clear to auscultation. NEURO: Alert and oriented. No deficits. MUSCULOSKELETAL: No deformities to inspection of the extremities. PSYCH: Patient is pleasant and answers all questions appropriately. Initial orders for labs and / or imaging were placed and patient was placed in the waiting area until a bed is available. Please see further documentation for the full ED course.
[2023-08-22 15:37] LABS: Basophils # (auto) 0.04 K/uL (0.00-0.20); Basophils % (auto) 0.5 %; Eosinophils # (auto) 0.06 K/uL (0.00-0.50); Eosinophils % (auto) 0.7 %; Hematocrit (blood only) 36.9 % (37.0-47.0); Hemoglobin 12.9 g/dl (12.0-16.0); Immature Granulocytes # (auto) 0.04 K/uL (0.01-0.20); Immature Granulocytes % (auto) 0.5 %; Lymphocytes # (auto) 1.13 K/uL (1.20-3.40); Lymphocytes % (auto) 13.4 %; Mean Corpuscular Hemoglobin 32.7 pg (25.0-34.0); Mean Corpuscular Volume 93.7 fL (80.0-100.0); Mean Platelet Volume 9.6 fL (9.4-12.4); Monocytes # (auto) 0.68 K/uL (0.11-0.59); Neutrophils # (auto) 6.51 K/uL (1.40-6.50); Neutrophils % (auto) 76.9 %; Platelet Count 193 K/uL (130-400); RDW Coefficient of Variation 12.3 % (11.5-14.5); RDW Standard Deviation 42.6 fL (36.4-46.3); Red Blood Count 3.94 M/uL (4.20-5.40); White Blood Count 8.46 K/ul (4.8-10.8)
[2023-08-22 15:51] LABS: Monotest Negative (Negative); Pregnancy Test, Serum Negative (Negative)
[2023-08-22 15:52] LABS: Albumin Globulin Ratio 1.5 (0.9-2); Albumin Level 4.6 gm/dl (3.4-5.0); BUN Creatinine Ratio 15.4 (10-20); Bilirubin,Total 0.8 mg/dl (0.2-1.0); Calcium 9.4 mg/dl (8.6-10.3); Creatinine Clr Calc Pharmacy 134.6 ml/min; Est GFR (African American) 132.4 ml/min; Est GFR (Non-African American) 114.2 ml/min; Potassium 3.8 mmol/L (3.5-5.1); Total Protein 7.6 gm/dl (6.0-8.3)
[2023-08-22] MEDS: OPTIRAY 320 500ml IV ONE (17:29)
--- NOTE | 2023-08-22 18:03 | CT Scan Report ---
CT soft tissue neck w con HISTORY: 38 years-old Female Sore throat, trismus, R sided soft palate edema acutely sore throat COMPARISON: CT sinus 03/22/2023 TECHNIQUE: Multiple axial CT images of the soft tissues of the neck were obtained with IV contrast A dose lowering technique was used consistent with the principals of KESHIA. FINDINGS: The imaged intracranial structures demonstrate no acute abnormality. There is enlargement with hetero geneous striated enhancement of the palatine tonsils. Ill-defined peripherally enhancing 1.2 x 1.8 x 1.1 cm hypodensity is noted along the anterior margin of the right palatine tonsil on image 154 serie s 3. There is inflammatory stranding within the parapharyngeal fat planes, right greater than left. M oderate oral pharyngeal narrowing with layering secretions. Unremarkable glottis and subglottic airwa y. The thyroid, parotid and submandibular glands are unremarkable. Moderate enlargement of the lingua l and adenoid tonsils. Level 2 cervical chain lymph nodes measure up to 11 mm. The thorax. No acute fracture. IMPRESSION: 1. Acute tonsillitis with 1.8 cm developing right peritonsillar abscess. 2. Moderate oral pharyngeal narrowing. 3. Likely reactive cervical chain lymphadenopathy. ACT 112: Negative or not required by law. The above report was generated using voice recognition software. It may contain grammatical, syntax o r spelling errors. Electronically signed by: Rei Roque M.D. 08/22/2023 6:02 PM
[2023-08-22] MEDS: AMPICILLIN/SULBACTAM SOD 3,000 MG in SODIUM CHLOR 0.9% MINI-B 100 ML IV STA (19:15)
[2023-08-22] MEDS: KETOROLAC TROMETHAMINE 15 MG/ML VIAL IV ONE (19:16)
[2023-08-22] MEDS: dexAMETHasone**PF** 10 MG/ML VIAL IV ONE (19:16)
[2023-08-22] MEDS: SODIUM CHLORIDE 0.9% 1,000 ML IV SCH (19:18)
--- NOTE | 2023-08-22 20:33 | Emergency Department Note ---
History of Present Illness General Chief complaint: Dental/Oral Stated complaint: ABCESS IN MOUTH Time Seen by Provider: 08/22/23 18:17 History of Present Illness Maximum Pain Intensity: 10 This is a 38-year-old female that presents to the emergency department via private vehicle with complaints of "abscess in mouth". Patient notes that she began with pain in the throat over the past few days and was seen this past Sunday at urgent care started on oral Augmentin. Patient presented to the PCP office today and was diagnosed with CHEF PASSENGER VESSEL clinically and sent here for further evaluation and management. Patient notes pain with swallowing. She notes decreased oral intake secondary to pain. She denies any chest pain or shortness of breath. Current pain 04/24. She did take OTC analgesic earlier this morning Home Medications Medication Instructions Recorded Confirmed Type multivitamin 1 tab PO HS 11/23/20 08/22/23 History acetaminophen 500 mg tablet 1,000 mg PO Q8 PRN Pain 07/27/21 08/22/23 History (Tylenol Extra Strength) ondansetron HCl 4 mg tablet 4 mg PO Q8H PRN nausea and 11/23/22 08/22/23 Rx vomiting #30 tabs biotin 1,000 mcg chewable tablet 1,000 mcg PO DAILY 03/13/23 08/22/23 History olopatadine 0.6 % nasal spray 2 spray intranasal BID #30.5 grams 03/13/23 08/22/23 Rx (Patanase) amoxicillin 875 mg-potassium 1 tab PO BID #60 tabs 08/22/23 08/22/23 Rx clavulanate 125 mg tablet ascorbic acid 30 mg-collagen, 1 tab PO HS 08/22/23 08/22/23 History hydrolyzed 833.3 mg tablet (Collagen Skin Renewal) azelastine 137 mcg (0.1 %) nasal 1 - 2 spray intranasal .Q1-2 X 08/22/23 08/22/23 History spray aerosol DAILY cetirizine 10 mg tablet 10 mg PO HS 08/22/23 08/22/23 History cholecalciferol (vitamin D3) 25 25 mcg PO HS 08/22/23 08/22/23 History mcg (1,000 unit) capsule escitalopram oxalate 10 mg tablet 10 mg PO HS 08/22/23 08/22/23 History (Lexapro) escitalopram oxalate 5 mg tablet 5 mg PO HS 08/22/23 08/22/23 History (Lexapro) mupirocin 2 % topical ointment 1 applic topical BID PRN 08/22/23 08/22/23 History DIRECTED zinc gluconate 50 mg tablet 50 mg PO HS 08/22/23 08/22/23 History Allergies Allergy/AdvReac Type Severity Reaction Status Date / Time nickel Allergy Mild Rash Verified 08/22/23 19:56 environmental Allergy Intermediate ITCHY Uncoded 08/22/23 19:56 EYES, SNEEZING, CONGESTION Past Med/Surg History Medical History Vitamin D deficiency Vulvar pruritus Migraine Breast lump or mass Anxiety Abnormal mammogram Surgical History H/O oral surgery Family History Grandmother (Paternal) Colorectal cancer Father Dyslipidemia Denies family history of Ovarian cancer Breast cancer Social History Smoking Status: Never smoker Do You Dip or Chew Tobacco: No; Hx Alcohol Use: No Hx Substance Use: No Preferred Language: Citizen Of [place] marital status: Current Living Situation: Spouse 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al status: employed 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: skills How many Children do You have: 4 Feels Safe at Home: Yes Review of Systems A total of 10 systems reviewed and were otherwise negative Physical Exam Vital Signs Vital Signs - 24 hr 08/22/23 14:47 08/22/23 19:20 08/22/23 21:00 Temperature 37.0 C Temperature Source Temporal Artery Scan Pulse Rate 101 H Pulse Rate [Finger] 87 75 Respiratory Rate 18 18 18 Respiratory Depth Normal Blood Pressure 157/107 H Blood Pressure [Right Arm] 148/95 H 151/97 H Blood Pressure Mean 123 Blood Pressure Mean [Right Arm] 112 115 Blood Pressure Position Sitting Pulse Oximetry 99 98 98 Oxygen Delivery Method Room Air Room Air Sepsis Recent Fever Within 48 Hours No Sepsis New/Unexplained Change in Mental Status No Sepsis Action Taken by Nursing No Action Required VITAL SIGNS - Vital signs and nursing notes were reviewed. Stable and afebrile. GENERAL -38-year-old female appearing her stated age who is in no acute distress. Communicates well with provider and answers questions appropriately. SKIN - Without rashes. No meningeal or petechial rash. HEAD - NC/AT. EYES - PERRL with EOMI bilaterally. Sclera anicteric. EARS - No deformities of external structures noted on gross examination bilaterally. NOSE - Midline and without cyanosis. No epistaxis or purulent drainage noted. Septum midline without deviation or septal hematoma noted. MOUTH/OROPHARYNX - Without perioral cyanosis. Buccal mucosa pink and moist and without leukoplakia. There is unilateral, right-sided tonsil hypertrophy with soft palate edema. Mild trismus noted. No drooling. Tongue midline as well as uvula. Good dentition noted. NECK - Neck with FROM. Supple to palpation. Bilat cervical lymphadenopathy noted. No nuchal rigidity. LUNGS - Chest wall symmetric without accessory muscle use, intercostals retractions, or central cyanosis. Normal vesicular breath sounds CTA B/L. No wheezes, rales, or rhonchi appreciated. CARDIAC - RRR with S1/S2. No murmur, rubs, or gallops appreciated. EXTREMITIES - No clubbing or peripheral cyanosis. +5/5 strength noted in UE/LE bilaterally. NEUROLOGIC - Cranial nerves II through XII grossly intact. PSYCH - A&O. Pt is very pleasant and interacts well with examiner. Course Administered Medications Discontinued Medications Dexamethasone Sodium Phosphate (DexamethasonePf 10 Mg/Ml Vial) 10 mg IV NOW ONE Stop: 08/22/23 18:40 Last Admin: 08/22/23 19:16 Dose: 10 mg Documented By: MATEUS Sodium Chloride (Nss) 1,000 mls @ 999 mls/hr IV .Q1H1M RACHANA Stop: 08/22/23 19:30 Last Infusion: 08/22/23 21:10 Dose: Infused Documented By: Admin: 08/22/23 19:18 Dose: 999 mls/hr Documented By: MATEUS Ampicillin Sodium/Sulbactam Sodium 3,000 mg/ Sodium Chloride 100 mls @ 200 mls/hr IV NOW STA Stop: 08/22/23 18:52 Last Infusion: 08/22/23 20:50 Dose: Infused Documented By: Admin: 08/22/23 19:15 Dose: 200 mls/hr Documented By: MATEUS Acetaminophen (Ofirmev) 1,000 mg in 100 mls @ 400 mls/hr IV NOW STA Stop: 08/22/23 20:26 Last Infusion: 08/22/23 21:09 Dose: Infused Documented By: Admin: 08/22/23 20:53 Dose: 400 mls/hr Documented By: MATEUS Ioversol (Optiray 320 500ml) 83 ml IV ONCE ONE Stop: 08/22/23 17:30 Last Admin: 08/22/23 17:29 Dose: 83 ml Documented By: DEXTER Ketorolac Tromethamine (Ketorolac Tromethamine 15 Mg/Ml Vial) 10 mg IV NOW ONE Stop: 08/22/23 18:24 Last Admin: 08/22/23 19:16 Dose: 10 mg Documented By: MATEUS Medical Decision Making Laboratory Data 08/22/23 15:15 08/22/23 15:15 Lab Results 08/22/23 08/22/23 08/22/23 Range/Units 15:09 15:15 21:30 WBC 8.46 (4.8-10.8) K/ul RBC 3.94 L (4.20-5.40) M/uL Hgb 12.9 (12.0-16.0) g/dl Hct 36.9 L (37.0-47.0) % MCV 93.7 (80.0-100.0) fL MCH 32.7 (25.0-34.0) pg MCHC 35.0 (32.0-36.0) g/dL RDW Std Deviation 42.6 (36.4-46.3) fL RDW Coeff of Lyla 12.3 (11.5-14.5) % Plt Count 193 (130-400) K/uL MPV 9.6 (9.4-12.4) fL Immature Gran % (Auto) 0.5 % Neut % (Auto) 76.9 % Lymph % (Auto) 13.4 % Burt % (Auto) 8.0 % Eos % (Auto) 0.7 % Baso % (Auto) 0.5 % Neut # (Auto) 6.51 H (1.40-6.50) K/uL Lymph # (Auto) 1.13 L (1.20-3.40) K/uL Burt # (Auto) 0.68 H (0.11-0.59) K/uL Eos # (Auto) 0.06 (0.00-0.50) K/uL Baso # (Auto) 0.04 (0.00-0.20) K/uL Immature Gran # (Auto) 0.04 (0.01-0.20) K/uL Sodium 137 (136-145) mmol/L Potassium 3.8 (3.5-5.1) mmol/L Chloride 102 (98-107) mmol/L Carbon Dioxide 28 (21-32) mmol/L Anion Gap 7 (3-11) BUN 10 (6-23) mg/dl Creatinine 0.65 (0.6-1.2) mg/dl Est Cr Clr Drug Dosing 134.6 ml/min Est GFR ( Amer) 132.4 ml/min Est GFR (Non-Af Amer) 114.2 ml/min BUN/Creatinine Ratio 15.4 (10-20) Glucose 95 (70-99(Fasting)) mg/dl Calcium 9.4 (8.6-10.3) mg/dl Total Bilirubin 0.8 (0.2-1.0) mg/dl AST 47 H (13-39) U/L ALT 49 (7-52) U/L Alkaline Phosphatase 106 H (34-104) U/L Total Protein 7.6 (6.0-8.3) gm/dl Albumin 4.6 (3.4-5.0) gm/dl Globulin 3.0 (2.5-4.0) gm/dl Albumin/Globulin Ratio 1.5 (0.9-2) HCG, Qual Negative (Negative) Monoscreen Negative (Negative) SARS-CoV-2, RNA, NAAT NEGATIVE (NEGATIVE) Group A Strep (PCR) DETECTED A (NotDetected) Imaging Data Radiologist's Impression: Soft Tissue Neck CT 08/22/23 14:51 CT soft tissue neck w con HISTORY: 38 years-old Female Sore throat, trismus, R sided soft palate edema acutely sore throat COMPARISON: CT sinus 03/22/2023 TECHNIQUE: Multiple axial CT images of the soft tissues of the neck were obtained with IV contrast A dose lowering technique was used consistent with the principals of KESHIA. FINDINGS: The imaged intracranial structures demonstrate no acute abnormality. There is enlargement with heterogeneous striated enhancement of the palatine tonsils. Ill-defined peripherally enhancing 1.2 x 1.8 x 1.1 cm hypodensity is noted along the anterior margin of the right palatine tonsil on image 154 series 3. There is inflammatory stranding within the parapharyngeal fat planes, right greater than left. Moderate oral pharyngeal narrowing with layering secretions. Unremarkable glottis and subglottic airway. The thyroid, parotid and submandibular glands are unremarkable. Moderate enlargement of the lingual and adenoid tonsils. Level 2 cervical chain lymph nodes measure up to 11 mm. The thorax. No acute fracture. IMPRESSION: 1. Acute tonsillitis with 1.8 cm developing right peritonsillar abscess. 2. Moderate oral pharyngeal narrowing. 3. Likely reactive cervical chain lymphadenopathy. ACT 112: Negative or not required by law. The above report was generated using voice recognition software. It may contain grammatical, syntax or spelling errors. Electronically signed by: Rei Roque M.D. 08/22/2023 6:02 PM MDM Narrative Patient was seen and evaluated as above in room C01. Review was performed of triage nursing notes and vital signs. After obtaining a thorough history and physical examination the above work up was performed. Patient presents to us today for evaluation of a sore throat and clinically has a CHEF PASSENGER VESSEL. She is well- appearing and nontoxic on examination. Mild trismus noted. Options of care were discussed with the patient. IV access was established. Labs were drawn. CT scan of the neck was obtained. There is acute tonsillitis with a 1.8 cm developing right CHEF PASSENGER VESSEL. Moderate oropharyngeal narrowing. Reactive cervical chain lymphadenopathy. We do not have ENT on-call at the present time therefore proceeded with review of findings with the ENT doctor at [facility]. I spoke to the ENT doctor there, specifically Dr. Rm. I spoke with him at 6:59 PM on 08/22/2023. He reviewed imaging which was sent from our facility. He recommended ED to ED transfer. Patient noted great concern as she has no one that can drive her and is apprehensive about traveling in an ambulance that she notes she becomes very nauseated and almost vomits when she rides in the back of an ambulance. I also do not believe that having the patient drive herself would be reasonable noting today's findings. It was then identified that our on-call oral maxillofacial surgeon in house also manages PTAs. Therefore I did speak with Dr. Hoang of oral maxillofacial surgery at 9:38 PM on 08/22/2023. He is happy to manage the patient at our facility. I presented these options to the patient and she does prefer to stay here which I believe is reasonable noting the ability to manage patient with our specialty services. While here in the ED the patient was medicated with IV acetaminophen, IV Unasyn, IV dexamethasone, IV Toradol, IV fluids. Labs reveal no leukocytosis or concerning anemia. No emergent metabolic disturbance. hCG negative. Mild AST elevation at 47. Burt negative. COVID test negative. Group A strep positive. Case discussed with the hospitalist service. Please refer to further documentation regarding her stay. GCS: 15 In the evaluation and treatment of this patient the following differential diagnoses were entertained: Strep pharyngitis, viral pharyngitis, allergic rhinitis with post nasal drip, airway obstruction, head/neck neoplasias, GERD, peritonisllar abscess, epiglottitis, gkod-jvjr-jux-mouth disease, herpes simplex, mononucleosis, pneumonia, retropharyngeal abscess, scarlet fever, among others. Impression & Plan Peritonsillar abscess, Tonsillitis, Group A streptococcal infection Discharge Plan Visit Data Chief Complaint: Dental/Oral Stated Complaint: ABCESS IN MOUTH ED Provider: Lori Abbott ED Midlevel Provider: Elmer Montes Discharge Problem: Peritonsillar abscess, Tonsillitis, Group A streptococcal infection Patient Disposition: Admitted As Inpatient Condition: Good Forms Stand Alone Forms: My [facility] Prescriptions Prescriptions: No Action ondansetron HCl 4 mg tablet 4 mg PO Q8H PRN (Reason: nausea and vomiting) Qty: 30 0RF biotin 1,000 mcg tablet,chewable 1,000 mcg PO DAILY olopatadine [Patanase] 0.6 % spray,non-aerosol 2 spray intranasal BID Qty: 30.5 11RF Rx Instructions: administer into each nostril Collagen Skin Renewal 30-833.3 mg tablet 1 tab PO HS zinc gluconate 50 mg tablet 50 mg PO HS amoxicillin-pot clavulanate 875-125 mg tablet 1 tab PO BID Qty: 60 0RF Rx Instructions: STARTED 08/20/23 FOR 10 DAYS acetaminophen [Tylenol Extra Strength] 500 mg Tablet 1,000 mg PO Q8 PRN (Reason: Pain) multivitamin Tablet 1 tab PO HS cetirizine 10 mg tablet 10 mg PO HS Rx Instructions: TAKE 1 TABLET BY MOUTH EVERY DAY mupirocin 2 % ointment 1 applic topical BID PRN (Reason: DIRECTED) azelastine 137 mcg (0.1 %) aerosol,spray 1 - 2 spray intranasal .Q1-2 X DAILY Rx Instructions: USE 1-2 SPRAYS EACH NOSTRIL 1-2 TIMES DAILY.; administer into each nostril cholecalciferol (vitamin D3) 25 mcg (1,000 unit) capsule 25 mcg PO HS escitalopram oxalate [Lexapro] 10 mg tablet 10 mg PO HS Rx Instructions: TOTAL DOSE 15 MG--TAKES WITH 5 MG TAB. escitalopram oxalate [Lexapro] 5 mg tablet 5 mg PO HS Rx Instructions: TOTAL DOSE 15MG--TAKES WITH 10 MG TAB. Referrals Referrals: Gretel Stokes DO [Primary Care Provider] -
[2023-08-22] MEDS: ACETAMINOPHEN 1,000 MG/100 ML VIAL IV STA (20:53)
--- NOTE | 2023-08-22 22:04 | Oral/Maxillofacial Consult ---
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 She went to Urgent Care over the weekend and was tested negative for strep but was told "they didn't get a good sample." She was also told she has a double ear infection. She was treated with Augmentin BID. She says that she has been taking medication as prescribed but her sore throat and ear pain is getting worse. She has been having low grade fevers and chills. She reports painful swallowing but denies any shortness of breath/trouble breathing. She has been taking Tylenol, Motrin, throat sprays, lozenges w/o relief. Was referred to the ER for further evaluation. Was seen in the ER by Elmer SHINE ( I discussed the case with Elmer) Jacqui was given IV antibiotics, fluids and Steroids. She is not having any airway issues or swallowing issues Jacqui reports improvement with this early intervention. I suggest IV fluids, antibiotics, steroid, pain control, Peridex mouth rinse, NPO midnight. I will see in AM and decide if she will need I&D or the right CARGO AGENT or can we treat medically. I saw Jacqui at 9:30 am on 08-23-2023 she is able to swallow with moderate pain. I was able to evaluate the right lateral tonsil area and there is a moderate enlargement of the right tonsil. The posterior soft palate is tender but the swelling looks to be less then seen on the CT yesterday. At this time she is not ready for an I&D. I will see Jacqui this evening and decide if an I&D will be necessary or can this be managed by oral antibiotics. If she continues to improve supportive care will be the treatment of choice if no improvement by tis evening I ill plan I&D tomorrow in the OR. No airway or swallowing issues (other then pain) CT soft tissue neck w con HISTORY: 38 years-old Female Sore throat, trismus, R sided soft palate edema acutely sore throat COMPARISON: CT sinus 03/22/2023 FINDINGS: The imaged intracranial structures demonstrate no acute abnormality. There is enlargement with heterogeneous striated enhancement of the palatine tonsils. Ill-defined peripherally enhancing 1.2 x 1.8 x 1.1 cm hypodensity is noted along the anterior margin of the right palatine tonsil on image 154 series 3. There is inflammatory stranding within the parapharyngeal fat planes, right greater than left. Moderate oral pharyngeal narrowing with layering secretions. Unremarkable glottis and subglottic airway. The thyroid, parotid and submandibular glands are unremarkable. Moderate enlargement of the lingual and adenoid tonsils. Level 2 cervical chain lymph nodes measure up to 11 mm. The thorax. No acute fracture. IMPRESSION: 1. Acute tonsillitis with 1.8 cm developing right peritonsillar abscess. 2. Moderate oral pharyngeal narrowing. 3. Likely reactive cervical chain lymphadenopathy. Allergies Allergy/AdvReac Type Severity Reaction Status Date / Time nickel Allergy Mild Rash Verified 08/22/23 19:56 Home Medications Medication Instructions Recorded Confirmed Type multivitamin 1 tab PO HS 11/23/20 08/22/23 History acetaminophen 500 mg tablet 1,000 mg PO Q8 PRN Pain 07/27/21 08/22/23 History (Tylenol Extra Strength) ondansetron HCl 4 mg tablet 4 mg PO Q8H PRN nausea and 11/23/22 08/22/23 Rx vomiting #30 tabs biotin 1,000 mcg chewable tablet 1,000 mcg PO DAILY 03/13/23 08/22/23 History olopatadine 0.6 % nasal spray 2 spray intranasal BID #30.5 grams 03/13/23 08/22/23 Rx (Patanase) amoxicillin 875 mg-potassium 1 tab PO BID #60 tabs 08/22/23 08/22/23 Rx clavulanate 125 mg tablet ascorbic acid 30 mg-collagen, 1 tab PO HS 08/22/23 08/22/23 History hydrolyzed 833.3 mg tablet (Collagen Skin Renewal) azelastine 137 mcg (0.1 %) nasal 1 - 2 spray intranasal .Q1-2 X 08/22/23 History spray aerosol DAILY cetirizine 10 mg tablet 10 mg PO HS 08/22/23 08/22/23 History cholecalciferol (vitamin D3) 25 25 mcg PO HS 08/22/23 08/22/23 History mcg (1,000 unit) capsule escitalopram oxalate 10 mg tablet 10 mg PO HS 08/22/23 08/22/23 History (Lexapro) escitalopram oxalate 5 mg tablet 5 mg PO HS 08/22/23 08/22/23 History (Lexapro) mupirocin 2 % topical ointment 1 applic topical BID PRN 08/22/23 08/22/23 History DIRECTED zinc gluconate 50 mg tablet 50 mg PO HS 08/22/23 08/22/23 History Patient History Medical History Vitamin D deficiency Vulvar pruritus Migraine Breast lump or mass Anxiety Abnormal mammogram Surgical History H/O oral surgery Family History Grandmother (Paternal) Colorectal cancer Father Dyslipidemia Denies family history of Ovarian cancer Breast cancer Social History Smoking Status: Never smoker Do You Dip or Chew Tobacco: No; Hx Alcohol Use: No Hx Substance Use: No Preferred Language: [place] Communication Ability: Effective Technical Systems Architect Required: No Beliefs That Will Affect Care: None marital status: Current Living Situation: Family 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al status: employed 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: skills How many Children do You have: 4 Other Information That Helps Us Care for You: No Feels Safe at Home: Yes Assistive Devices: None Results & Data Vital Signs (Past 12 Hours) Vital Signs Temp Pulse Pulse Resp BP BP Pulse Ox 08/22/23 21:00 75 18 151/97 H 98 08/22/23 19:20 87 18 148/95 H 98 08/22/23 14:47 37.0 C 101 H 18 157/107 H 99 O2 Del Method 08/22/23 21:00 Room Air 08/22/23 19:20 Room Air 08/22/23 14:47 PG Care Time/CCT Total # of Minutes Spent Total Time Spent with Patient: Total time spent is greater than 50% in coordination of care (as documented) at patient's floor/unit and/or counseling patient: Coding Level of Care Code 13515 IN/OBS CONSULT LVL 2,35M
--- NOTE | 2023-08-22 22:16 | History & Physical Report ---
Date of Service August 22, 2023 Assessment & Plan (1) Tonsillitis: (2) Peritonsillar abscess: (3) Anxiety: (4) Allergic rhinitis: Plan 38 yo female PMHx Anxiety, allergic Rhinitis admitted found to have GAS pharyngitis/tonsillitis/peritonsillar abscess #Peritonsillar Abscess GAS positive Unasyn Dexamethasone Acetaminophen Motrin OMS consult, appreciate recs #Anxiety Lexapro 15mg qHS #Allergic Rhinitis Continue home regimen FENGI: regular Code status: full DVT prophylaxis: lovenox Isolation: none Disposition: med/surg History of Present Illness Primary Care Provider: Gretel Stokes, DO 38yo female PMHx anxiety, allergic rhinitis referred to [facility] by primary care found to have R peritonsillar abscess. Beginning this weekend had b/l ear pain and sore throat. Seen by urgent care this weekend told she had b/l ear infection and swabbed for strep. Started on Augmentin BID. Presented to PCP today with worsening symptoms despite antibiotics. Patient seen and evaluated at bedside. Continues to report low grade fevers and chills, painful swallowing. No difficulty breathing. Denies LONG, CP, SOB, N/V/D dysuria. ED Course Labs: remarkable for positive GAS CT: 1. Acute tonsillitis with 1.8 cm developing right peritonsillar abscess. 2. Moderate oral pharyngeal narrowing. 3. Likely reactive cervical chain lymphadenopathy. Recieved 1g IV tylenol, unasyn, 10mg solumedrol, 10mg ketorolac Allergies Allergy/AdvReac Type Severity Reaction Status Date / Time nickel Allergy Mild Rash Verified 08/22/23 19:56 Home Medications Medication Instructions Recorded Confirmed Type multivitamin 1 tab PO HS 11/23/20 08/22/23 History acetaminophen 500 mg tablet 1,000 mg PO Q8 PRN Pain 07/27/21 08/22/23 History (Tylenol Extra Strength) ondansetron HCl 4 mg tablet 4 mg PO Q8H PRN nausea and 11/23/22 08/22/23 Rx vomiting #30 tabs biotin 1,000 mcg chewable tablet 1,000 mcg PO DAILY 03/13/23 08/22/23 History olopatadine 0.6 % nasal spray 2 spray intranasal BID #30.5 grams 03/13/23 08/22/23 Rx (Patanase) amoxicillin 875 mg-potassium 1 tab PO BID #60 tabs 08/22/23 08/22/23 Rx clavulanate 125 mg tablet ascorbic acid 30 mg-collagen, 1 tab PO HS 08/22/23 08/22/23 History hydrolyzed 833.3 mg tablet (Collagen Skin Renewal) azelastine 137 mcg (0.1 %) nasal 1 - 2 spray intranasal .Q1-2 X 08/22/23 08/22/23 History spray aerosol DAILY cetirizine 10 mg tablet 10 mg PO HS 08/22/23 08/22/23 History cholecalciferol (vitamin D3) 25 25 mcg PO HS 08/22/23 08/22/23 History mcg (1,000 unit) capsule escitalopram oxalate 10 mg tablet 10 mg PO HS 08/22/23 08/22/23 History (Lexapro) escitalopram oxalate 5 mg tablet 5 mg PO HS 08/22/23 08/22/23 History (Lexapro) mupirocin 2 % topical ointment 1 applic topical BID PRN 08/22/23 08/22/23 History DIRECTED zinc gluconate 50 mg tablet 50 mg PO HS 08/22/23 08/22/23 History Past Med/Surg History Medical History (Updated 08/23/23 @ 17:33 by Kacie Ruvalcaba MD) Vitamin D deficiency Vulvar pruritus Migraine Breast lump or mass Anxiety Abnormal mammogram Surgical History H/O oral surgery Family History Grandmother (Paternal) Colorectal cancer Father Dyslipidemia Denies family history of Ovarian cancer Breast cancer Social History Smoking Status: Never smoker Do You Dip or Chew Tobacco: No; Hx Alcohol Use: No Hx Substance Use: No Preferred Language: Tongan Communication Ability: Effective Voice Writing Reporter Required: No Beliefs That Will Affect Care: None marital status: Current Living Situation: Family 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al status: employed 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: skills How many Children do You have: 4 Other Information That Helps Us Care for You: No Feels Safe at Home: Yes Assistive Devices: None Review of Systems Review of Systems: reviewed, per HPI Physical Exam Physical Exam: Constitutional: well-appearing, no acute distress HEENT: NCAT, no conjunctival injection, pharyngeal erythema, pharynx patent, R tonsillar hypertrophy CV: regular rhythm, no murmur appreciated, extremities well-perfused, no LE edema Resp: CTABL, no wheezes/rales/rhonchi appreciated, no increased work of breathing GI: soft, nondistended, nontender, BS normoactive MSK: no gross deformities appreciated Skin: warm, dry, no rash appreciated Neuro: alert, oriented, no focal neurologic deficit appreciated Results & Data Results & Data Vital Signs (Past 12 Hours) Vital Signs Temp Pulse Pulse Resp BP BP Pulse Ox 08/22/23 21:00 75 18 151/97 H 98 08/22/23 19:20 87 18 148/95 H 98 08/22/23 14:47 37.0 C 101 H 18 157/107 H 99 O2 Del Method 08/22/23 21:00 Room Air 08/22/23 19:20 Room Air 08/22/23 14:47 Supervising Physician Co-Signing Physician Notes Attending addendum: I have physically seen this patient, have supervised the medical residents activities, and agree with the H&P unless as otherwise noted. Assessment and Plan: Tonsillitis/peritonsillar abscess- N.p.o. RICHARD positive Unasyn 3 g IV every 6 hours Dexamethasone 4 mg IV every 8 hours Acetaminophen 1 g IV every 8 hours as needed for mild pain or fever Consult to oral maxillofacial surgery Dr. Hoang
[2023-08-22] MEDS: ESCITALOPRAM OXALATE 20 MG TAB PO STA (23:57)
[2023-08-23] MEDS ORDERED: AMPICILLIN SOD/SULBACTAM SOD 3 GM VIAL IV SCH (00:24)
[2023-08-23] MEDS ORDERED: ONDANSETRON INJ 2 MG/ML 2 ML VIAL IV PRN (00:24)
[2023-08-23] MEDS ORDERED: POLYETHYLENE (MIRALAX) 17 GM PACK PO PRN (00:24)
[2023-08-23] MEDS: AZELASTINE HCL 0.1% NASAL 200 SPRAYS/27,400 MCG BTL SCH (01:18)
[2023-08-23] MEDS: UNASYN 3000MG / NS q6h IV SCH (01:19)
[2023-08-23] MEDS: ACETAMINOPHEN 500 MG TAB PO PRN (05:43)
[2023-08-23] MEDS: IBUPROFEN 600 MG TAB PO PRN (08:37)
[2023-08-23] MEDS ORDERED: ESCITALOPRAM OXALATE 20 MG TAB PO SCH (09:00)
[2023-08-23] MEDS ORDERED: NON-FORMULARY MEDICATION (Biotin 1,000 mcg tablet,chewable) PO SCH (09:00)
[2023-08-23] MEDS ORDERED: CHLORHEXIDINE GLUCONATE 0.12% 480 ML MT PRN (09:44)
[2023-08-23] MEDS: CHLORHEXIDINE GLUCONATE 0.12% 480 ML MT SCH (10:30)
[2023-08-23] MEDS: SUMAtriptan succinate 50 MG TAB PO ONE (10:44)
[2023-08-23] MEDS: KETOROLAC TROMETHAMINE 15 MG/ML VIAL IV ONE (14:40)
--- NOTE | 2023-08-23 17:36 | Hospitalist Progress Note ---
Date of Service August 23, 2023 Assessment & Plan (1) Peritonsillar abscess: Plan: 38 yo female PMHx Anxiety, allergic Rhinitis admitted found to have GAS pharyngitis/tonsillitis/peritonsillar abscess strep swab positive, airway widely patent -continue dexamethasone and amp-sulbactam -consulted OMFS, reviewed recs in note - he will reevaluate this evening to see whether I&D necessary -full liquid diet, npo after midnight (2) Migraine: Plan: had APAP and motrin this am -ordered sumatriptan 50 mg x 1 -ordered dose of toradol 10 mg late morning for headache and throat pain Plan #Anxiety Lexapro 15mg qHS #Allergic Rhinitis Continue home regimen Admission and Anticipated Discharge Date Admission Date: August 22, 2023 Subjective throat pain and swelling significantly improved. hadn't drank fluids yet when seen this am but no trouble swallowing secretions, no difficutly breathing has headache typical of her migraine - usually responds to tylenol or motrin and caffeine Physical Exam 2 Physical Exam: PHYSICAL EXAMINATION Last 24h vital signs reviewed, see documentation in flowsheet General: comfortable appearing, no distress HEENT: Normocephalic, atraumatic, pupils round and equal, sclerae anicteric, no conjunctival injection, moist mucus membranes Right peritonsillar area is edematous erythematous and inflamed bulges into pharynx but airway is widely patent, no drainage visible though there is some whitish exudate, left peritonsillar area appears normal Lungs: Normal respiratory effort. Heart: Deferred Abdomen: nondistended. Extremities: Warm, dry, well-perfused. No extremity edema. Neuro: Alert and oriented x 4, face symmetric, moves 4 extremities well Psych: Normal affect and behavior Results & Data Results & Data Vital Signs (Past 12 Hours) Vital Signs Temp Pulse Resp BP Pulse Ox O2 Del Method 08/23/23 14:35 36.5 C 73 16 129/86 96 Room Air 08/23/23 07:30 36.7 C 79 17 124/86 96 Room Air Laboratory Results 08/22/23 15:15 08/22/23 15:15 PG Care Time/CCT Total # of Minutes Spent Total Time Spent with Patient: Total time spent is greater than 50% in coordination of care (as documented) at patient's floor/unit and/or counseling patient: Coding Level of Care Code 86552 SUB INP/OBS CARE MIN Diagnoses Peritonsillar abscess J36 Migraine G43.909
--- NOTE | 2023-08-23 19:17 | Oral/Maxillofacial Progress Nt ---
Date of Service August 23, 2023 Assessment & Plan Admission and Anticipated Discharge Date Admission Date: August 22, 2023 Montserrat Osman is still in pain and has a lump in her throat right side She is still in pain and has a lump in her throat right side. On clinical exam there is a swollen tonsil which is now fluctuant and ready for discharge. The IV antibiotics, steroids, fluid only minimal improvement noted. The I&D is necessary to drain the infection . We will plan I&D tomorrow in OR. Pain on palpation right lateral throat area Swallowing with pain. CT reviewed all questions answered Consent signed for OR tomorrow. Results & Data Vital Signs (Past 12 Hours) Vital Signs Temp Pulse Resp BP Pulse Ox O2 Del Method 08/23/23 14:35 36.5 C 73 16 129/86 96 Room Air 08/23/23 07:30 36.7 C 79 17 124/86 96 Room Air PG Care Time/CCT Total # of Minutes Spent Total Time Spent with Patient: Total time spent is greater than 50% in coordination of care (as documented) at patient's floor/unit and/or counseling patient: Coding Level of Care Code None
[2023-08-23] MEDS: CHOLECALCIFEROL 25 MCG (1000 UNITS) TAB PO SCH (20:13)
[2023-08-23] MEDS: dexAMETHasone 10 MG in SYRINGE 0 ML IV SCH (20:13)
[2023-08-23] MEDS: ESCITALOPRAM OXALATE 10 MG TAB PO SCH (20:13)
[2023-08-23] MEDS: CETIRIZINE HCL 10 MG TABLET PO SCH (20:13)
[2023-08-23] MEDS: MULTIVITAMIN TAB PO SCH (20:13)
[2023-08-23] MEDS ORDERED: ESCITALOPRAM OXALATE 10 MG TAB PO SCH (21:00)
[2023-08-23] MEDS ORDERED: NON-FORMULARY MEDICATION (Zinc Gluconate 50 mg tablet) PO SCH (21:00)
--- NOTE | 2023-08-23 21:41 | Billing Data ---
Date of Service August 23, 2023 Coding Level of Care Code 95896 INT INP/OBS CARE
--- NOTE | 2023-08-24 14:08 | Anesthesiology Consultation ---
Date of Service August 24, 2023 Assessment & Plan Chart Review Chart Review: Acceptable Risk for Surgery Consults Requested none History Surgery Operation Date: 08/24/23 07:50 Proposed Procedures p Right Peritonsillar Abscess - Caesar Hoang DMD Height/Weight Height: 5 ft 2 in Weight: 102.965 kg Allergies Allergy/AdvReac Type Severity Reaction Status Date / Time nickel Allergy Mild Rash Verified 08/22/23 19:56 Medications Home Medications Medication Instructions Recorded Confirmed Last Taken multivitamin 1 tab PO HS 11/23/20 08/22/23 08/21/23 acetaminophen 500 mg tablet 1,000 mg PO Q8 PRN Pain 07/27/21 08/22/23 Unknown (Tylenol Extra Strength) ondansetron HCl 4 mg tablet 4 mg PO Q8H PRN nausea and 11/23/22 08/22/23 Unknown vomiting #30 tabs biotin 1,000 mcg chewable tablet 1,000 mcg PO DAILY 03/13/23 08/22/23 08/21/23 olopatadine 0.6 % nasal spray 2 spray intranasal BID #30.5 grams 03/13/23 08/22/23 08/21/23 (Patanase) amoxicillin 875 mg-potassium 1 tab PO BID #60 tabs 08/22/23 08/22/23 08/21/23 08:00 clavulanate 125 mg tablet ascorbic acid 30 mg-collagen, 1 tab PO HS 08/22/23 08/22/23 08/21/23 hydrolyzed 833.3 mg tablet (Collagen Skin Renewal) azelastine 137 mcg (0.1 %) nasal 1 - 2 spray intranasal .Q1-2 X 08/22/23 08/22/23 08/21/23 spray aerosol DAILY cetirizine 10 mg tablet 10 mg PO HS 08/22/23 08/22/23 08/21/23 cholecalciferol (vitamin D3) 25 25 mcg PO HS 08/22/23 08/22/23 08/21/23 mcg (1,000 unit) capsule escitalopram oxalate 10 mg tablet 10 mg PO HS 08/22/23 08/22/23 08/21/23 (Lexapro) escitalopram oxalate 5 mg tablet 5 mg PO HS 08/22/23 08/22/23 08/21/23 (Lexapro) mupirocin 2 % topical ointment 1 applic topical BID PRN 08/22/23 08/22/23 Unknown DIRECTED zinc gluconate 50 mg tablet 50 mg PO HS 08/22/23 08/22/23 08/21/23 Active Medications Generic Name Dose Route Start Last Admin Trade Name Clive PRN Reason Stop Dose Admin Acetaminophen 1,000 mg 08/23/23 00:24 08/23/23 17:16 Acetaminophen 500 Mg Tab PO 09/22/23 00:23 1,000 mg Q8 PRN Administration Pain Azelastine HCl 1 - 2 sprays 08/23/23 00:24 08/24/23 13:15 Azelastine Hcl 0.1% Nasal 200 Sprays/27,400 Mcg Btl NA 09/22/23 00:23 1 sprays Q12H RACHNAA Administration Cetirizine HCl 10 mg 08/23/23 21:00 08/23/23 20:13 Cetirizine Hcl 10 Mg Tablet PO 09/22/23 20:59 10 mg HS RACHANA Administration Chlorhexidine Gluconate 15 ml 08/23/23 09:00 08/24/23 13:14 Chlorhexidine Gluconate 0.12% 480 Ml MT 09/22/23 08:59 15 ml QID RACHANA Administration Escitalopram Oxalate 15 mg 08/23/23 21:00 08/23/23 20:13 Escitalopram Oxalate 10 Mg Tab PO 09/22/23 20:59 15 mg HS RACHANA Administration Dexamethasone 10 mg/ Syringe 2.5 mls @ 1.25 mls/min 08/23/23 20:00 08/23/23 20:13 IV 09/22/23 19:59 1.25 mls/min Q24H RACHANA Administration Ampicillin Sodium/Sulbactam 100 mls @ 200 mls/hr 08/23/23 00:30 08/24/23 13:14 Sodium 3,000 mg/ Sodium IV 08/30/23 00:29 200 mls/hr Chloride Q6 RACHANA Administration Ibuprofen 600 mg 08/23/23 00:24 08/23/23 08:37 Ibuprofen 600 Mg Tab PO 09/22/23 00:23 600 mg Q6H PRN Administration Pain Multivitamins 1 tab 08/23/23 21:00 08/23/23 20:13 Multivitamin Tab PO 09/22/23 20:59 1 tab HS RACHANA Administration Vitamin D 25 mcg 08/23/23 21:00 08/23/23 20:13 Cholecalciferol 25 Mcg (1000 Units) Tab PO 09/22/23 20:59 25 mcg HS RACHANA Administration NPO Date Last Intake of Fluids: 08/23/23 Time Last Intake of Fluids: 23:15 Date Last Intake of Solids: 08/23/23 Time Last Intake of Solids: 20:35 Past Medical History Medical History (Updated 08/23/23 @ 17:33 by Kacie Ruvalcaba MD) Vitamin D deficiency Vulvar pruritus Migraine Breast lump or mass Anxiety Abnormal mammogram Past Family History Family History Grandmother (Paternal) Colorectal cancer Father Dyslipidemia Denies family history of Ovarian cancer Breast cancer Past Surgical History Surgical History H/O oral surgery Social History Smoking Status: Never smoker Do You Dip or Chew Tobacco: No Hx Alcohol Use: No Hx Substance Use: No substance use type: does not use Physical Exam Vital Signs Last Vital Signs Temp 36.5 C 08/24/23 07:52 Pulse 85 08/24/23 07:52 Resp 18 08/24/23 07:52 BP 171/84 H 08/24/23 07:52 Pulse Ox 98 08/24/23 07:52 O2 Del Method Room Air 08/24/23 07:52 Testing Laboratory Results 08/22/23 15:15 08/22/23 15:15 08/22/23 15:09 Throat Culture - Final Throat Moderate normal clare.
[2023-08-24] MEDS ORDERED: ePHEDrine sulfate 50 MG/ML AMP IV PRN (14:09)
[2023-08-24] MEDS ORDERED: HYDROmorphone INJ 2 MG/ML SYR/VIAL IV PRN (14:09)
[2023-08-24] MEDS ORDERED: fentaNYL citrate PF 100 MCG/2 ML VIAL IV PRN (14:09)
[2023-08-24] MEDS ORDERED: ONDANSETRON INJ 2 MG/ML 2 ML VIAL IV PRN (14:09)
[2023-08-24] MEDS ORDERED: PROMETHAZINE HCL 12.5 MG in SODIUM CHLORIDE 0.9% 50 ML IV PRN (14:09)
[2023-08-24] MEDS ORDERED: ATROPINE SULFATE 0.1 MG/ML 10ML SYR IV PRN (14:09)
--- NOTE | 2023-08-24 14:41 | History & Physical Bridge Note ---
Date of Service August 24, 2023 History & Physical Bridge Note I have examined the patient, reviewed the History & Physical and in the interval since the performance of the History & Physical I have noted the following changes of clinical significance: no changes noted OK for drainage of right LATHE SET UP PERSON
[2023-08-24] MEDS ORDERED: PROPOFOL IV EMULSION 10 MG/ML 20 ML VIAL IV ONE (14:58)
[2023-08-24] MEDS ORDERED: LIDOCAINE 2% 2 ML VIAL/AMP(20MG/ML) INFIL ONE (14:58)
[2023-08-24] MEDS ORDERED: MIDAZOLAM HCL 1 MG/ML 2ML VIAL ONE (14:58)
[2023-08-24] MEDS ORDERED: fentaNYL citrate PF 100 MCG/2 ML VIAL ONE ×2 (14:59→15:36)
[2023-08-24] MEDS ORDERED: ROCURONIUM BROMIDE 10 MG/ML 5 ML VIAL IV ONE (15:00)
[2023-08-24] MEDS ORDERED: DEXAMETHASONE SOD INJ 4 MG/ML VIAL ONE (15:37)
[2023-08-24] MEDS ORDERED: ONDANSETRON INJ 2 MG/ML 2 ML VIAL ONE (15:37)
[2023-08-24] MEDS ORDERED: SUGAMMADEX SODIUM 200 MG/2 ML VIAL IV ONE (15:42)
--- NOTE | 2023-08-24 15:56 | Post Operative Brief Note ---
PG Immediate Post Op with CF Date of Surgery August 24, 2023 Pre & Post Diagnosis Operation Date: 08/24/23 07:50 Pre-Op Diagnosis: TONSILLITIS/PERITONSILLAR ABSCESS Post-Op Diagnosis: TONSILLITIS/PERITONSILLAR ABSCESS I identified the patient and participated in the time-out.: Yes Procedure Operation Date: 08/24/23 07:50 Actual Procedures p Right Peritonsillar Abscess(Right) - Caesar Hoang, ALISSON Surgeon Caesar Hoang, ALISSON Division Manager none Estimated Blood Loss 2 Findings Consistent with Post-Op Diagnosis swollen right tonsile area and soft tissue right palate area Specimens Specimen Description: 1. Culture- Right peritonsilar abscess Anesthesia Type General Complications none
[2023-08-24] MEDS: ACETAMINOPHEN 1,000 MG/100 ML VIAL IV STA (16:33)
--- NOTE | 2023-08-24 16:35 | Hospitalist Progress Note ---
Date of Service August 24, 2023 Assessment & Plan (1) Tonsillitis: (2) Peritonsillar abscess: (3) Anxiety: (4) Allergic rhinitis: Plan 38 yo female PMHx Anxiety, allergic Rhinitis admitted found to have GAS pharyngitis/tonsillitis/peritonsillar abscess #Peritonsillar Abscess Group A strep swab was positive, throat culture with normal clare Continue ampsulbactam and dexamethasone, chlorhexidine oral rinses -Underwent I&D in OR today by Dr. Hoang -Follow-up operative culture Migraine headache treated yesterday with sumatriptan, acetaminophen, Toradol has resolved #Anxiety Lexapro 15mg qHS #Allergic Rhinitis Continue home regimen DVT prophylaxis: lovenox Admission and Anticipated Discharge Date Admission Date: August 22, 2023 Subjective Seen in a.m. has had some improvement in right-sided throat pain and swelling, did have a period of a few hours of increased drainage of foul tasting material from throat overnight Physical Exam 2 Physical Exam: PHYSICAL EXAMINATION Last 24h vital signs reviewed, see documentation in flowsheet General: comfortable appearing, no distress HEENT: Normocephalic, atraumatic, pupils round and equal, sclerae anicteric, no conjunctival injection, moist mucus membranes Right peritonsillar area is edematous erythematous and inflamed, however improved and bulges less, airway is widely patent, no drainage visible though there is some whitish exudate, left peritonsillar area appears normal Lungs: Normal respiratory effort. Heart: Deferred Abdomen: nondistended. Extremities: Warm, dry, well-perfused. No extremity edema. Neuro: Alert and oriented x 4, face symmetric, moves 4 extremities well Psych: Normal affect and behavior Results & Data Results & Data Vital Signs (Past 12 Hours) Vital Signs Temp Pulse Pulse Resp BP Pulse Ox O2 Del Method 08/24/23 16:13 36.0 C L 81 14 150/106 H 95 Room Air 08/24/23 14:08 36.8 C 86 16 146/94 H 94 Room Air 08/24/23 07:52 36.5 C 85 18 171/84 H 98 Room Air Laboratory Results 08/22/23 15:15 08/22/23 15:15 PG Care Time/CCT Total # of Minutes Spent Total Time Spent with Patient: Total time spent is greater than 50% in coordination of care (as documented) at patient's floor/unit and/or counseling patient: Coding Level of Care Code 37007 SUB INP/OBS CARE Diagnoses Tonsillitis J03.90 Peritonsillar abscess J36 Anxiety F41.9 Allergic rhinitis J30.9
--- NOTE | 2023-08-24 16:47 | Anesthesiology Progress Note ---
Date of Service August 24, 2023 Anesthesia Post Procedure Vital Signs Vital Signs: Temp Pulse Pulse Resp BP Pulse Ox O2 Del Method 08/24/23 16:30 75 16 159/106 H 93 Room Air 08/24/23 16:20 75 18 149/105 H 96 Room Air 08/24/23 16:10 81 16 157/113 H 97 Room Air 08/24/23 16:02 36.0 C L 81 14 150/106 H 95 Room Air 08/24/23 14:08 36.8 C 86 16 146/94 H 94 Room Air 08/24/23 07:52 36.5 C 85 18 171/84 H 98 Room Air 08/24/23 03:10 36.5 C 82 17 150/99 H 97 Room Air 08/23/23 19:18 36.7 C 71 17 124/83 98 Room Air Pain Intensity Throat: Pain Intensity: 6 Head: Pain Intensity: 5 Transfer of Care Handoff Completed per policy Notes Mental Status: alert / awake / arousable Patient Amnestic to Procedure: Yes Nausea / Vomiting: adequately controlled Pain: adequately controlled Airway Patency, RR, SpO2: stable & adequate BP & HR: stable & adequate Hydration State: stable & adequate Anesthetic Complications: no major complications apparent
[2023-08-24] MEDS: BUPIVACAINE/EPINEPHRINE 0.5% 1:200,000 1.8 ML CARP ONE (17:12)
[2023-08-24] MEDS: ACETAMINOPHEN 1000 MG/100 ML IV IV ONE (17:13)
--- NOTE | 2023-08-25 09:15 | Oral/Maxillofacial Progress Nt ---
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 Cultures pending Infection has responded very well to the antibiotics and the I and D. I requested that the patient continue with Peridex rinse and local wound care. 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 OK for discharge Peridex and Augmentin PO RTC to see me in 01-22 for her PCP in [place] Results & Data Vital Signs (Past 12 Hours) Vital Signs Temp Pulse Pulse Resp BP Pulse Ox O2 Del Method 08/25/23 07:46 36.4 C L 70 18 170/99 H 95 Room Air 08/25/23 04:11 36.7 C 67 14 148/89 H 95 Room Air 08/25/23 00:16 36.7 C 74 18 130/87 94 Room Air PG Care Time/CCT Total # of Minutes Spent Total Time Spent with Patient: Total time spent is greater than 50% in coordination of care (as documented) at patient's floor/unit and/or counseling patient: Coding Level of Care Code 66575 SUB INP/OBS CARE 1/25MIN
--- NOTE | 2023-08-25 18:37 | Discharge Summary ---
Date of Service August 25, 2023 Admission HPI Per Admitting Provider 38yo female PMHx anxiety, allergic rhinitis referred to [facility] by primary care found to have R peritonsillar abscess. Beginning this weekend had b/l ear pain and sore throat. Seen by urgent care this weekend told she had b/l ear infection and swabbed for strep. Started on Augmentin BID. Presented to PCP today with worsening symptoms despite antibiotics. Patient seen and evaluated at bedside. Continues to report low grade fevers and chills, painful swallowing. No difficulty breathing. Denies LONG, CP, SOB, N/V/D dysuria. ED Course Labs: remarkable for positive GAS CT: 1. Acute tonsillitis with 1.8 cm developing right peritonsillar abscess. 2. Moderate oral pharyngeal narrowing. 3. Likely reactive cervical chain lymphadenopathy. Recieved 1g IV tylenol, unasyn, 10mg solumedrol, 10mg ketorolac Principal Diagnosis peritonsillar abscess Discharge Exam PHYSICAL EXAMINATION Last 24h vital signs reviewed, see documentation in flowsheet General: comfortable appearing, no distress HEENT: Normocephalic, atraumatic, pupils round and equal, sclerae anicteric, no conjunctival injection, moist mucus membranes Right peritonsillar area is erythematous and sutures visible, no longer bulging, airway is widely patent, no drainage visible Lungs: Normal respiratory effort. Heart: Deferred Abdomen: nondistended. Extremities: Warm, dry, well-perfused. No extremity edema. Neuro: Alert and oriented x 4, face symmetric, moves 4 extremities well Psych: Normal affect and behavior Discharge Data Allergies Allergy/AdvReac Type Severity Reaction Status Date / Time nickel Allergy Mild Rash Verified 08/22/23 19:56 Consultations 08/22/23 21:47 ED Decision to Admit Stat 08/22/23 22:40 Consult Oromaxillofacial Surgery Stat Procedures Performed Operation Date: 08/24/23 07:50 Actual Procedures p Right Peritonsillar Abscess(Right) - Caesar Hoang DMD Ordered Studies 08/22/23 14:51 CT soft tissue neck w con Stat Soft Tissue Neck CT 08/22/23 14:51 CT soft tissue neck w con HISTORY: 38 years-old Female Sore throat, trismus, R sided soft palate edema acutely sore throat COMPARISON: CT sinus 03/22/2023 TECHNIQUE: Multiple axial CT images of the soft tissues of the neck were obtained with IV contrast A dose lowering technique was used consistent with the principals of KESHIA. FINDINGS: The imaged intracranial structures demonstrate no acute abnormality. There is enlargement with heterogeneous striated enhancement of the palatine tonsils. Ill-defined peripherally enhancing 1.2 x 1.8 x 1.1 cm hypodensity is noted along the anterior margin of the right palatine tonsil on image 154 series 3. There is inflammatory stranding within the parapharyngeal fat planes, right greater than left. Moderate oral pharyngeal narrowing with layering secretions. Unremarkable glottis and subglottic airway. The thyroid, parotid and submandibular glands are unremarkable. Moderate enlargement of the lingual and adenoid tonsils. Level 2 cervical chain lymph nodes measure up to 11 mm. The thorax. No acute fracture. IMPRESSION: 1. Acute tonsillitis with 1.8 cm developing right peritonsillar abscess. 2. Moderate oral pharyngeal narrowing. 3. Likely reactive cervical chain lymphadenopathy. ACT 112: Negative or not required by law. The above report was generated using voice recognition software. It may contain grammatical, syntax or spelling errors. Electronically signed by: Rei Roque M.D. 08/22/2023 6:02 PM 08/22/23 15:15 08/22/23 15:15 Hospital Course (1) Peritonsillar abscess: 38 yo female PMHx Anxiety, allergic Rhinitis admitted found to have GAS pharyngitis/tonsillitis/peritonsillar abscess #Peritonsillar Abscess Group A strep PCR swab was positive, throat culture with normal clare treated with ampsulbactam and dexamethasone, chlorhexidine oral rinses -improved but abscess related swelling persisted -Underwent I&D in OR 08/[address] Hoang -Follow-up operative culture - pinpoint growth -discharged with oral augmentin, continue chlorhexidine rinses, follow up with [facility] (2) Tonsillitis: (3) Anxiety: (4) Allergic rhinitis: Plan Migraine headache treated 08/23 with sumatriptan, acetaminophen, Toradol has resolved Total Time Total Time Spent Total Time Spent (In Minutes): 25 minutes Discharge Plan Discharge Items Patient Disposition: Home - Self-Care Reason For Visit: TONSILLITIS/PERITONSILLAR ABSCESS Discharge Diagnosis: peritonsilar abscess, status post I&D Condition on Discharge: Good Activity: Resume your previous activity Lifting: Gradually increase as tolerated Bathing: No limitations Exercise/Sports: Gradually increase as tolerated Driving/Machine Use: Resume 1 day after discharge Weightbearing: Full weightbearing Non-emergency contact: Surgeon Call non-emergency contact if: your rectal temperature is above 100.4, your temperature is above 101.5, your wound has increased redness, your wound has increased drainage and your wound pain has increased Follow-up/Referrals: Gretel Stokes-DO Enma [Primary Care Provider] - 09/07/23 11:30 am (DR MCINTYRE) Caesar Hoang, DMD [Physician] - Diet: Regular Diet Texture: Easy to Chew Addtl Attending Provider Instructions: ADDITIONAL ACTIVITY RECOMMENDATIONS: * [place] teeth after every meal. It is very important to keep your mouth clean to prevent infection. * Starting tonight rinse with the Peridex as directed then 2 x a day * it is very important to keep well hydrated, this prevents fever SPECIAL CARE INSTRUCTIONS: *It is not uncommon that between day 2-4 that your swelling will be at its worst this is very normal, do not be alarmed. * Keep ice on the side of your face for the next 24 to 36 hours. This will help keep the swelling down. * After 36 hours, apply heat (hot water bottle or heating pad) for the next two days, as often as possible. * Tomorrow start rinsing your mouth with 1/2 teaspoon salt in 8 ounces warm water. This rinse should be used every 4-6 hours. * You may experience slight nausea. To prevent this, never take your medication on an empty stomach. If nauseated, take small sips of antoinette eunice until you feel better; then you may start on applesauce and toast. * Some swelling is common. It should gradually decrease within 4-5 days. * A certain amount of bleeding is to be expected. It is often possible to control mild oozing by placing folded gauze over the area and biting down for 30 minutes. If you are unable to control excessive bleeding, call Dr Hoang at [phone] * You may experience some discomfort for a few days. If pain or swelling increases, Call Dr Hoang * Return to the office for a follow up check up on: PLEASE CALL OFFICE TO SET UP YOUR FOLLOW FOR ME TO SEE YOU IN 10-14 days * office address--[address] phone # [phone] Pending Studies at Discharge: Yes Studies:: cultures Stand-Alone Forms: My [facility], Smoking Cessation Medications and DC Order Prescriptions: New ibuprofen 600 mg Tablet 600 mg PO Q6H PRNQty: 0 0RF Continued ondansetron HCl 4 mg tablet 4 mg PO Q8H PRN (Reason: nausea and vomiting) Qty: 30 0RF biotin 1,000 mcg tablet,chewable 1,000 mcg PO DAILY olopatadine [Patanase] 0.6 % spray,non-aerosol 2 spray intranasal BID Qty: 30.5 11RF Rx Instructions: administer into each nostril Collagen Skin Renewal 30-833.3 mg tablet 1 tab PO HS zinc gluconate 50 mg tablet 50 mg PO HS amoxicillin-pot clavulanate 875-125 mg tablet 1 tab PO BID Qty: 60 0RF Rx Instructions: STARTED 08/20/23 FOR 10 DAYS acetaminophen [Tylenol Extra Strength] 500 mg Tablet 1,000 mg PO Q8 PRN (Reason: Pain) multivitamin Tablet 1 tab PO HS cetirizine 10 mg tablet 10 mg PO HS Rx Instructions: TAKE 1 TABLET BY MOUTH EVERY DAY mupirocin 2 % ointment 1 applic topical BID PRN (Reason: DIRECTED) azelastine 137 mcg (0.1 %) aerosol,spray 1 - 2 spray intranasal .Q1-2 X DAILY Rx Instructions: USE 1-2 SPRAYS EACH NOSTRIL 1-2 TIMES DAILY.; administer into each nostril cholecalciferol (vitamin D3) 25 mcg (1,000 unit) capsule 25 mcg PO HS escitalopram oxalate [Lexapro] 10 mg tablet 10 mg PO HS Rx Instructions: TOTAL DOSE 15 MG--TAKES WITH 5 MG TAB. escitalopram oxalate [Lexapro] 5 mg tablet 5 mg PO HS Rx Instructions: TOTAL DOSE 15MG--TAKES WITH 10 MG TAB. Discontinued amoxicillin-pot clavulanate 875-125 mg tablet 1 tab PO Q12H Qty: 14 0RF Discharge Orders: Discharge Order (Routine); Ordered 08/25/23 Ordered By: Kacie Hedrick/Other Patient Handouts: When You Have a Sore Throat, Tonsillitis in Adults, Pharyngitis or Tonsillitis Ch, ED Pharyngitis, Viral, ED Tonsillitis (Strep Throat) Admission Data Admit Date/Time: 08/22/23 22:40 Attending Provider: Kacie Ruvalcaba Admit Provider: Keny Persaud Primary Care Provider: Gretel Stokes Other Providers: Gus Rodriguez; Caesar Hoang Other Interventions: Discharge Summary Assessment (RN) Last Done: 08/25/23 09:33 Coding Level of Care Code 21193 IN/OBS DISCH 30 MIN/LESS Diagnoses Peritonsillar abscess J36 Tonsillitis J03.90 Anxiety F41.9 Allergic rhinitis J30.9
--- NOTE | 2023-09-01 14:04 | Operative Report ---
PG Post Operative Report Pre & Post Diagnosis Operation Date: 08/24/23 07:50 Pre-Op Diagnosis: TONSILLITIS/PERITONSILLAR ABSCESS Post-Op Diagnosis: TONSILLITIS/PERITONSILLAR ABSCESS I identified the patient and participated in the time-out.: Yes Procedure Operation Date: 08/24/23 07:50 Actual Procedures p Right Peritonsillar Abscess(Right) - Caesar Hoang DMD Surgeon Caesar Hoang DMD [place]azier Supervisor none Estimated Blood Loss 2 Findings Consistent with Post-Op Diagnosis Specimens I&D drainage Anesthesia Type General Complications none Indications RISK CONTROL REPRESENTATIVE Description of Procedure Description of Procedure Actual Procedures p Incision and Drainage Right tonsil recess- Caesar Hoang DMD Once cleared for surgery general anesthesia was achieved, the eyes were protected by the anesthesia dept criteria. A time out was take for patient ID, antibiotics, equipment and position verification once all agreed the procedure began. Local anesthesia using Marcaine with a vasoconstrictor ( 1.8 ml per site) given into right soft palate and tonsil area Once a surgical level of anesthesia was obtained and the local anesthesia was given time for the blocks the surgery was started. I turned my attention to the infection which was located in the right tonsil see CT scan report Incision and Drainage Right Tonsil and Right lateral epiglottic fold with Biopsy CPT 51815---U&D RISK CONTROL REPRESENTATIVE ICD 10--------J36 RISK CONTROL REPRESENTATIVE Using a 15 blade an incision was made lateral to the fluctuant swelling of the right tonsil fold. Once the incision was made a lot of pus extruded from the site. This drainage was cultured for anaerobic and aerobic bacteria A curved hemostat was carefully placed into the infected space, further drainage was now allowed to escape. I placed a few 3-0 chromic sutures to close the I&D site. I palpated the neck and submandibular area and no further drainage was expressed. I now did a direct examination of the throat with a laryngoscope There was no airway compromise or compression. The floor of the mouth, tongue soft palate, lateral area, left tonsil, base of the tongue and epiglottic areas were all WNL The area was irrigated with at least 100 ml of NS solution. OG tube placed. I inspected the sites to insure all bleeding was controlled. I removed the throat pack and suctioned the throat. A gauze pressure dressings was placed. All instrument and sponge count was correct. The patient was allowed to awake from the anesthesia. Once full awake the anesthesia tube was removed and the patient was taken to the recovery room with all vital sign stable. The patient tolerated the surgery very well. I will follow the patient in while in hospital Rx and instructions will be given upon discharge. I attest to the content of the Intraoperative Record and any orders documented therein. Any exceptions are noted below.
== END 2023-08-25 11:09 | disposition home or self-care (01) ==
LOC: 3W 14:43 → ED 14:43 → SUATTDRO 22:40 → 3W 08-23 00:04